=== PATIENT | male | born 1940 | race Caucasian/White ===

== ENCOUNTER 2016-08-11 21:03 | Observation (INO) | payer BC, MEDICARE ==
[2016-08-11] MEDS ORDERED: HYDROmorphone 2 MG/ML SDV IVPUSH ONE (21:23)
[2016-08-11] MEDS ORDERED: Iopamidol 755 Mg/ML 100 ML Bottle IV SCH (22:00)
--- NOTE | 2016-08-11 23:47 | EDM.PDOC ---
[id number]: ABD PAIN Time Seen by Provider: 08/11/16 21:23 Source of Information: Reports: Patient, Family History Limitations: Reports: Physical Impairment - History of Present Illness INITIAL COMMENTS - FREE TEXT/NARRATIVE: 75 y.o.w.m came with his to the ed due to LLQ abd. pain. Pt has H/O diverticulitis./osis nO TRAUMA, lAST bm TODAY, SOFT, Pt has a h/o C Diff. No Nausea of vomiting. Poor po intake. Pt is a poor historian, HPI was given by his . Onset: Gradual, Unknown/Unsure Onset Date: 08/11/16 Onset Time: 08:00 Duration: Hour(s):, Getting Worse Location: Reports: Abdomen (LLQ ), Generalized Quality: Reports: Ache, Burning, Pressure Severity: Moderate Improves with: Reports: Movement Worsens with: Reports: Movement Associated Symptoms: Reports: Loss of Appetite, Weakness Middle Abdominal Pain Score (Numeric/FACES): 10 denies pain when asked Pain Score (Numeric/FACES): 0 - Related Data Allergies Allergy/AdvReac Type Severity Reaction Status Date / Time Penicillins Allergy Diarrhea Verified 08/11/16 21:17 Home Meds: Home Meds Acetaminophen [Tylenol Extra Strength] 500 mg PO Q4H PRN 11/17/12 [History] Venlafaxine HCl [Venlafaxine ER] 300 mg PO DAILY 11/17/12 [History] Loperamide [Imodium] 2 mg PO ASDIRECTED PRN 10/09/13 [History] Tamsulosin [Flomax] 0.4 mg PO DAILY 10/09/13 [History] cycloSPORINE [Restasis] 1 drop EYEBOTH BID 10/09/13 [History] buPROPion HCl [Wellbutrin] 150 mg PO DAILY 10/10/13 [History] Losartan [Cozaar] 100 mg PO DAILY 08/11/16 [History] Melatonin/Pyridoxine HCl (B6) [Melatonin 3 mg Tablet] 6 mg PO BEDTIME 08/11/16 [ History] Ranitidine [Zantac] 1 tab PO BID 08/11/16 [History] Cholecalciferol (Vitamin D3) [Vitamin D3] 1,000 unit PO DAILY 08/12/16 [History] Leuprolide Acetate [Lupron Depot] 45 mg IM Q6M 08/12/16 [History] Past Medical History Oncologic (Cancer) History: Reports: Prostate - Past Surgical History GI Surgical History: Reports: Other (See Below) Other GI Surgeries/Procedures: Patient unsure of history Social & Family History - Tobacco Use Smoking Status *Q: Former Smoker Used Tobacco, but Quit: No - Caffeine Use Caffeine Use: Reports: Coffee - Alcohol Use Days Per Week of Alcohol Use: 0 - Recreational Drug Use Recreational Drug Use: No - Living Situation & Occupation Living situation: Reports: Occupation: Employed ED ROS GENERAL - Review of Systems Review Of Systems: Unable To Obtain ED EXAM, GI/ABD - Physical Exam Exam: See Below Exam Limited By: Physical Impairment General Appearance: Alert, WD/WN, Moderate Distress, Obese Eyes: Bilateral: Normal Appearance Ears: Normal External Exam Nose: Normal Inspection, Normal Mucosa Throat/Mouth: Normal Inspection, Normal Lips Head: Atraumatic, Normocephalic Neck: Normal Inspection, Supple, Non-Tender Respiratory/Chest: No Respiratory Distress, Lungs Clear, Normal Breath Sounds ( poor insp effort) Cardiovascular: Normal Peripheral Pulses, Regular Rate, Rhythm, No Edema GI/Abdominal: Hyperactive Bowel Sounds (Male) Exam: Deferred Rectal (Males) Exam: Deferred Back Exam: Normal Inspection, Full Range of Motion Extremities: Normal Inspection, Normal Range of Motion, Non-Tender, No Pedal Edema Neurological: Alert, Oriented, CN II-XII Intact, Normal Cognition Psychiatric: Normal Affect, Normal Mood Skin Exam: Warm, Dry, Intact, Normal Color, No Rash Lymphatic: No Adenopathy Course - Vital Signs Text/Narrative:: 75 y.o.w.m came with his to the ed due to LLQ abd. pain. Pt has H/O diverticulitis./osis nO TRAUMA, LAST Bm: TODAY, SOFT brown, no blood, Pt has a h /o C Diff. No Nausea or vomiting. Poor po intake. Pt is a poor historian, HPI was given by his . PE: obese, abd. pain LLQ of abdomen, hyperactyive BS Imaging: CT Abd. possible early bowel obstruction, diverticulosis Impression: possible early bowel obstruction, diverticulosis Tx: Dilaudid for severe pain. Stoo; was sent for c diff Reexam: Improved Plan: admit for obs. Consultation with Dr. Castro in am. Last Recorded V/S: Last Vital Signs Temp 36.5 C 08/12/16 15:15 Pulse 74 08/12/16 15:15 Resp 18 08/12/16 15:15 BP 137/69 08/12/16 15:15 Pulse Ox 95 08/12/16 15:15 - Orders/Labs/Meds Labs: Laboratory Tests 08/11/16 08/11/16 Range/Units 21:30 21:30 WBC 6.9 (4.5-12.0) X10-3/uL RBC 3.88 L (4.30-5.75) x10(6)uL Hgb 12.4 (11.5-15.5) g/dL Hct 36.3 (30.0-51.3) % MCV 93.5 (80-96) fL MCH 32.0 (27.7-33.6) pg MCHC 34.2 (32.2-35.4) g/dL RDW 12.7 (11.5-15.5) % Plt Count 236 (125-369) X10(3)uL MPV 8.5 (7.4-10.4) fL Neut % (Auto) 75.7 (46-82) % Lymph % (Auto) 12.2 L (13-37) % [place] % (Auto) 8.9 (4-12) % Eos % (Auto) 3 (1.0-5.0) % Baso % (Auto) 1 (0-2) % Neut # (Auto) 5.3 (1.6-8.3) # Lymph # (Auto) 0.8 (0.6-5.0) # [place] # (Auto) 0.6 (0.0-1.3) # Eos # (Auto) 0.2 (0.0-0.8) # Baso # (Auto) 0.0 (0.0-0.2) # Sodium 132 L (135-145) mmol/L Potassium 3.8 (3.5-5.3) mmol/L Chloride 99 L D (100-110) mmol/L Carbon Dioxide 24 (23-29) mmol/L BUN 27 H (8-23) mg/dL Creatinine 1.2 (0.6-1.3) mg/dL Est Cr Clr Drug Dosing 49.47 mL/min Estimated GFR (MDRD) 59 L (>60) BUN/Creatinine Ratio 22.5 H (9-20) Glucose 123 H (80-116) mg/dL Calcium 9.3 (8.6-10.2) mg/dL Total Bilirubin 0.6 (0.1-1.3) mg/dL Direct Bilirubin 0.1 (0.1-0.2) mg/dL AST 37 H (5-27) IU/L ALT 30 H (14-26) IU/L Alkaline Phosphatase 61 (56-112) IU/L Total Protein 7.3 (6.0-8.0) g/dL Albumin 4.1 (3.2-4.6) g/dL Amylase 32 (28-100) U/L Meds: Medications Discontinued Medications Generic Name Dose Route Start Last Admin Trade Name Freq PRN Reason Stop Dose Admin Hydromorphone HCl 1 mg 08/11/16 21:23 08/11/16 21:33 Dilaudid IVPUSH 08/11/16 21:24 1 mg ONETIME ONE Administration Hydromorphone HCl 0.5 mg 08/11/16 23:48 Dilaudid IVPUSH Q2H PRN Pain (severe 7-10) Iopamidol 100 ml 08/11/16 22:00 08/11/16 22:00 Isovue-370 (76%) IV 95 ml . DIRECTED NESTOR Administration Ondansetron HCl 4 mg 08/11/16 23:48 Zofran IV Q4H PRN Nausea/Vomiting Sodium Chloride 10 ml 08/11/16 23:48 Saline Flush FLUSH ASDIRECTED PRN Keep Vein Open Departure - Departure Time of Disposition: 02:00 Disposition: Admitted As Inpatient 68 Condition: fair Clinical Impression: Abdominal pain Qualifiers: Abdominal location: left lower quadrant Qualified Code(s): R10.32 - Left lower quadrant pain - Discharge Information
[2016-08-11] MEDS ORDERED: Ondansetron 4 MG/2 ML SDV IV PRN (23:48)
[2016-08-11] MEDS ORDERED: Sodium Chloride 0.9% 10 ML Syringe FLUSH PRN (23:48)
[2016-08-11] MEDS ORDERED: HYDROmorphone 2 MG/ML SDV IVPUSH PRN (23:48)
[2016-08-12] MEDS ORDERED: 50% Dextrose in Water 50 ML Syringe IVPUSH ONE (02:02)
[2016-08-12] MEDS ORDERED: Dextrose 5%-0.9% NaCl 1,000 ML IV SCH (02:15)
--- NOTE | 2016-08-12 10:03 | PCM.SURGPN ---
- General Info Date of Service: 08/12/16 POD#: 0 Functional Status: Reports: pain controlled, other (diarrhea ) - Review of Systems Gastrointestinal: Reports: No symptoms - Patient Data Vitals - most recent: Last Vital Signs Temp 36.3 C 08/12/16 04:00 Pulse 63 08/12/16 04:00 Resp 18 08/12/16 04:00 BP 138/76 08/12/16 04:00 Pulse Ox 98 08/12/16 04:00 Weight - most recent: 111.402 kg Med Orders - Current: Current Medications Hydromorphone HCl (Dilaudid) 0.5 mg IVPUSH Q2H PRN PRN Reason: Pain (severe 7-10) Iopamidol (Isovue-370 (76%)) 100 ml IV . DIRECTED NESTOR Last Admin: 08/11/16 22:00 Dose: 95 ml Ondansetron HCl (Zofran) 4 mg IV Q4H PRN PRN Reason: Nausea/Vomiting Sodium Chloride (Saline Flush) 10 ml FLUSH ASDIRECTED PRN PRN Reason: Keep Vein Open Discontinued Medications Hydromorphone HCl (Dilaudid) 1 mg IVPUSH ONETIME ONE Stop: 08/11/16 21:24 Last Admin: 08/11/16 21:33 Dose: 1 mg - Exam General: alert, oriented, cooperative, no acute distress Lungs: Clear to auscultation, Normal respiratory effort Cardiovascular: Regular Rate, Regular Rhythm Abdomen: bowel sounds present, soft, no tenderness, no distension - Problem List & Annotations (1) Diarrhea SNOMED Code(s): 37346661 Code(s): R19.7 - DIARRHEA, UNSPECIFIED Status: Acute Current Visit: Yes Qualifiers: Diarrhea type: presumed infectious Qualified Code(s): A09 - Infectious gastroenteritis and colitis, unspecified - Problem List Review Problem List Initiated/Reviewed/Updated: Yes - My Orders Last 24 Hours: Active Orders 24 hr Category Date Time Status Regular Diet [DIET] Diet 08/12/16 Lunch Ordered CDIFF TOXIN A+B GROUP [OP] Routine Lab 08/12/16 01:07 Received Medication Orders Hydromorphone HCl (Dilaudid) 0.5 mg IVPUSH Q2H PRN PRN Reason: Pain (severe 7-10) Iopamidol (Isovue-370 (76%)) 100 ml IV . DIRECTED NESTOR Last Admin: 08/11/16 22:00 Dose: 95 ml Ondansetron HCl (Zofran) 4 mg IV Q4H PRN PRN Reason: Nausea/Vomiting Sodium Chloride (Saline Flush) 10 ml FLUSH ASDIRECTED PRN PRN Reason: Keep Vein Open - Assessment Assessment (Free Text/Narrative):: does not have any evidence of obstruction. with his hx of c diff colitis this is a concern. - Plan Plan (Free Text/Narrative):: will feed await c diff results.
--- NOTE | 2016-08-12 15:42 | PCM.SN ---
- Free Text/Narrative Note: C diff negative. will allow to go home follow up with pcp next week.
[2016-08-12 16:23] VITALS: BP 137/69
== END 2016-08-12 16:55 | disposition home or self-care (01) ==
LOC: FB.ED 21:03 → FB.MS 23:49
PROVIDERS: ADMIT Emergency Medicine; ATTEND Surgery
DX: A09 Infectious gastroenteritis and colitis, unspecified (principal); Z87.19 Personal history of other diseases of the digestive system; Z85.46 Personal history of malignant neoplasm of prostate; Z87.891 Personal history of nicotine dependence; Z88.0 Allergy status to penicillin; Z79.899 Other long term (current) drug therapy
CPT/HCPCS: 36415; 74177; 80048; 80076; 82150; 85025; 87324; 96374; 99285; G0378; J1170; Q9967; 96372

== ENCOUNTER 2020-03-21 12:48 | Emergency (ER) | payer BC, MEDICARE ==
[2020-03-21] MEDS ORDERED: Aspirin 81 MG Tab.Chew PO ONE (13:13)
--- NOTE | 2020-03-21 13:27 | EDM.PDOC ---
ED HPI GENERAL MEDICAL PROBLEM - General Stated Complaint: SEVERE CHEST PAIN Time Seen by Provider: 03/21/20 13:27 Source of Information: Reports: Patient History Limitations: Reports: No Limitations - History of Present Illness INITIAL COMMENTS - FREE TEXT/NARRATIVE: 79 yo gentleman who presented to the ER with retrosternal chest that on and off for the past 1 month. Was seen and evaluated by PCP -- EKG, Labs. Current pain started today at Home. He describes it as retrosternal chest pain which he rates as 5/10 with no obvious aggravating or reliving factors.No SOB, Cough. Presented to the ER for further evaluation Onset: Other (Has been on and off for 1 month) Onset Date: 03/21/20 Duration: Week(s): (4) Location: Reports: Chest Quality: Reports: Sharp Improves with: Reports: None Worsens with: Reports: None Associated Symptoms: Reports: No Other Symptoms Treatments [employer]: Reports: Nitroglycerin (with mild relief) Chest Pain Score (Numeric/FACES): 20 - Related Data Allergies Allergy/AdvReac Type Severity Reaction Status Date / Time lisinopril Allergy Cough Verified 03/21/20 13:06 Penicillins Allergy Diarrhea Verified 03/21/20 13:06 Home Meds: Home Meds Venlafaxine HCl [Venlafaxine ER] 300 mg PO DAILY 11/17/12 [History] Loperamide [Imodium] 2 mg PO ASDIRECTED PRN 10/09/13 [History] cycloSPORINE [Restasis] 1 drop EYEBOTH BID 10/09/13 [History] buPROPion HCl [Wellbutrin] 75 mg PO BID 10/10/13 [History] Hydrochlorothiazide/Losartan [Hyzaar 100-12.5 MG] 1 tab PO DAILY 03/21/18 [History] Omeprazole 20 mg PO BIDAC 03/22/18 [History] Gabapentin [Neurontin] 600 mg PO BEDTIME 03/21/20 [History] Nitroglycerin [Nitrostat] 0.4 mg SL ASDIRECTED 03/21/20 [History] Vortioxetine Hydrobromide [Trintellix] 20 mg PO DAILY 03/21/20 [History] Past Medical History HEENT History: Reports: Cataract, Hard of Hearing, Impaired Vision Other HEENT History: CONDUCTIVE AND SENSORINEURAL HEARING LOSS Cardiovascular History: Reports: Hypertension Other Cardiovascular History: CHEST PAIN Respiratory History: Reports: None Gastrointestinal History: Reports: GERD Other Gastrointestinal History: GEN ABDO PAIN, ULCER Genitourinary History: Reports: Prostate Disorder, Urinary Incontinence, UTI, Recurrent Other Genitourinary History: BLADDER TUMOR, DYSURIA, HEMATURIA, INCOMPLETE BLADDER EMPTYING, OVERACTIVE BLADDER, RADIATION CYSTITIS Other Musculoskeletal History: PERIPERAL NEUROPATHY, NUMBNESS AND TINGLING IN HANDS, PAIN IN JOINT,PELVIC AND THIGH Neurological History: Reports: Neuropathy, Peripheral Psychiatric History: Reports: Anxiety, Depression Endocrine/Metabolic History: Reports: Obesity/BMI 30+ Hematologic History: Reports: Anemia Immunologic History: Reports: None Oncologic (Cancer) History: Reports: Bladder, Prostate Other Oncologic History: SKIN Other Dermatologic History: BASAL CELL CARCINOMA - Past Surgical History Male Surgical History: Social & Family History - Caffeine Use Caffeine Use: Reports: Coffee - Living Situation & Occupation Living situation: Reports: Occupation: Employed ED ROS GENERAL - Review of Systems Review Of Systems: See Below Constitutional: Reports: No Symptoms HEENT: Reports: No Symptoms Respiratory: Reports: No Symptoms Cardiovascular: Reports: Chest Pain Endocrine: Reports: No Symptoms GI/Abdominal: Reports: No Symptoms : Reports: No Symptoms Musculoskeletal: Reports: No Symptoms Skin: Reports: No Symptoms Neurological: Reports: No Symptoms Psychiatric: Reports: No Symptoms Hematologic/Lymphatic: Reports: No Symptoms Immunologic: Reports: No Symptoms ED EXAM, GENERAL - Physical Exam Exam: See Below Exam Limited By: No Limitations General Appearance: Alert, WD/WN, No Apparent Distress Eye Exam: Bilateral Eye: EOMI, PERRL Ear Exam: Bilateral Ear: Auricle Normal, Canal Normal, TM normal Nose: Normal Inspection, Normal Mucosa, No Blood Throat/Mouth: Normal Inspection, Normal Lips, Normal Teeth, Normal Gums, Normal Oropharynx Head: Atraumatic, Normocephalic Neck: Normal Inspection, Supple, Non-Tender Respiratory/Chest: No Respiratory Distress, Lungs Clear, Normal Breath Sounds, No Accessory Muscle Use, Chest Non-Tender Cardiovascular: Normal Peripheral Pulses, Regular Rate, Rhythm, No Edema, No Gallop, No Murmur GI/Abdominal: Normal Bowel Sounds, Soft, Non-Tender, No Organomegaly, No Distention, No Abnormal Bruit Back Exam: Normal Inspection, Full Range of Motion Extremities: Normal Inspection, Normal Range of Motion, Non-Tender, No Pedal Edema, Normal Capillary Refill Neurological: Alert, Oriented, CN II-XII Intact, Normal Cognition, Normal Reflexes, No Motor/Sensory Deficits Psychiatric: Normal Affect, Normal Mood Skin Exam: Warm, Dry, Intact, Normal Color Lymphatic: No Adenopathy Course - Vital Signs Last Recorded V/S: Last Vital Signs Temp 36.3 C 03/21/20 13:00 Pulse 80 03/21/20 13:00 Resp 18 03/21/20 13:00 BP 164/93 H 03/21/20 13:00 Pulse Ox 97 03/21/20 13:00 - Orders/Labs/Meds Orders: Active Orders 24 hr Category Date Time Status EKG Documentation Completion [RC] ASDIRECTED Care 03/21/20 13:00 Active CXR [Chest 2V] [CR] Stat Exams 03/21/20 13:13 Taken Heparin Sodium/0.45% NaCl [Heparin 25,000 Units in 1/2 Med 03/21/20 15:00 Active NS 500 ML] 500 ml IV ASDIRECTED Nitroglycerin/D5W [Nitroglycerin 25 MG/D5W 250 ML] Med 03/21/20 14:30 Active 25 mg in 250 ml IV TITRATE EKG 12 Lead [EK] Routine Ther 03/21/20 13:00 Ordered Medication Orders Nitroglycerin/Dextrose (Nitroglycerin 25 Mg/D5w 250 Ml) 25 mg in 250 mls @ 6 mls/hr IV TITRATE NESTOR; Protocol Last Admin: 03/21/20 14:35 Dose: 10 mcg/min, 6 mls/hr Documented by: KRISTYN Heparin Sodium/Sodium Chloride (Heparin 25,000 Units In 1/2 Ns 500 Ml) 500 mls @ 20 mls/hr IV ASDIRECTED NESTOR Labs: Laboratory Tests 03/21/20 03/21/20 03/21/20 Range/Units 13:30 13:30 13:30 WBC 5.0 (3.2-10.1) x10-3/uL RBC 3.68 L (3.90-5.90) x10(6)uL Hgb 11.8 L (12.9-17.7) g/dL Hct 36.4 L (38.3-50.1) % MCV 98.7 (80.8-98.7) fL MCH 32.0 (27.0-33.3) pg MCHC 32.4 (28.7-35.3) g/dL RDW 14.5 (12.4-15.0) % Plt Count 227 (117-477) x10(3)uL MPV 8.5 (6.7-11.0) fL Neut % (Auto) 75.5 H (40.3-71.8) % Lymph % (Auto) 12.5 L (15.8-45.3) % [place] % (Auto) 7.8 (5.5-15.2) % Eos % (Auto) 3.9 (0.1-6.8) % Baso % (Auto) 0.3 (0.3-3.8) % Neut # (Auto) 3.8 (1.7-6.9) x10-3/uL Lymph # (Auto) 0.6 (0.5-4.5) x10-3/uL [place] # (Auto) 0.4 (0.0-1.2) x10-3/uL Eos # (Auto) 0.2 (0.0-0.6) x10-3/uL Baso # (Auto) 0.0 (0.0-0.3) x10-3/uL Sodium 142 (135-145) mmol/L Potassium 4.3 (3.5-5.3) mmol/L Chloride 103 (100-110) mmol/L Carbon Dioxide 28 (21-32) mmol/L BUN 25 H (7-18) mg/dL Creatinine 1.5 H (0.70-1.30) mg/dL Est Cr Clr Drug Dosing 41.24 mL/min Estimated GFR (MDRD) 45 L (>60) BUN/Creatinine Ratio 16.7 (9-20) Glucose 128 H (80-116) mg/dL Calcium 9.1 (8.6-10.2) mg/dL Magnesium (1.8-2.5) mg/dL Total Bilirubin 0.5 (0.1-1.3) mg/dL AST 30 H (5-25) IU/L ALT 39 H (12-36) U/L Alkaline Phosphatase 52 L (56-112) IU/L Troponin I 90.6 H* (4.0-60.3) pg/mL NT-Pro-B Natriuret Pep (<=450) pg/mL Total Protein 6.8 (6.0-8.0) g/dL Albumin 3.7 (3.2-4.6) g/dL Globulin 3.1 g/dL Albumin/Globulin Ratio 1.2 03/21/20 03/21/20 Range/Units 13:30 13:30 WBC (3.2-10.1) x10-3/uL RBC (3.90-5.90) x10(6)uL Hgb (12.9-17.7) g/dL Hct (38.3-50.1) % MCV (80.8-98.7) fL MCH (27.0-33.3) pg MCHC (28.7-35.3) g/dL RDW (12.4-15.0) % Plt Count (117-477) x10(3)uL MPV (6.7-11.0) fL Neut % (Auto) (40.3-71.8) % Lymph % (Auto) (15.8-45.3) % [place] % (Auto) (5.5-15.2) % Eos % (Auto) (0.1-6.8) % Baso % (Auto) (0.3-3.8) % Neut # (Auto) (1.7-6.9) x10-3/uL Lymph # (Auto) (0.5-4.5) x10-3/uL [place] # (Auto) (0.0-1.2) x10-3/uL Eos # (Auto) (0.0-0.6) x10-3/uL Baso # (Auto) (0.0-0.3) x10-3/uL Sodium (135-145) mmol/L Potassium (3.5-5.3) mmol/L Chloride (100-110) mmol/L Carbon Dioxide (21-32) mmol/L BUN (7-18) mg/dL Creatinine (0.70-1.30) mg/dL Est Cr Clr Drug Dosing mL/min Estimated GFR (MDRD) (>60) BUN/Creatinine Ratio (9-20) Glucose (80-116) mg/dL Calcium (8.6-10.2) mg/dL Magnesium 2.1 (1.8-2.5) mg/dL Total Bilirubin (0.1-1.3) mg/dL AST (5-25) IU/L ALT (12-36) U/L Alkaline Phosphatase (56-112) IU/L Troponin I (4.0-60.3) pg/mL NT-Pro-B Natriuret Pep 143 (<=450) pg/mL Total Protein (6.0-8.0) g/dL Albumin (3.2-4.6) g/dL Globulin g/dL Albumin/Globulin Ratio Meds: Medications Generic Name Dose Route Start Last Admin Trade Name Freq PRN Reason Stop Dose Admin Nitroglycerin/Dextrose 25 mg in 250 mls @ 6 mls/hr 03/21/20 14:30 03/21/20 14:35 Nitroglycerin 25 Mg/D5w 250 Ml IV 10 mcg/min TITRATE NESTOR 6 mls/hr Administration Protocol 10 MCG/MIN Heparin Sodium/Sodium Chloride 500 mls @ 20 mls/hr 03/21/20 15:00 Heparin 25,000 Units In / Ns 500 Ml IV ASDIRECTED NESTOR Discontinued Medications Generic Name Dose Route Start Last Admin Trade Name Freq PRN Reason Stop Dose Admin Aspirin 324 mg 03/21/20 13:13 03/21/20 13:20 Aspirin PO 03/21/20 13:14 324 mg ONETIME ONE Administration Heparin Sodium (Porcine) 5,000 units 03/21/20 15:09 Heparin Sodium IVPUSH 03/21/20 15:10 ONETIME ONE Nitroglycerin/Dextrose Confirm 03/21/20 14:31 03/21/20 14:43 Nitroglycerin 25 Mg/D5w 250 Ml Administered 03/21/20 14:32 Not Given Dose 25 mg in 250 mls @ as directed .ROUTE .STK-MED ONE Morphine Sulfate 2 mg 03/21/20 14:19 03/21/20 14:35 Morphine IVPUSH 03/21/20 14:20 2 mg ONETIME ONE Administration Nitroglycerin 0.4 mg 03/21/20 14:20 Nitrostat SL 03/21/20 14:21 ONETIME ONE - Re-Assessments/Exams Free Text/Narrative Re-Assessment/Exam: 03/21/20 15:33 Clinical picture consistent with NSTEMI Nitroglycerin gtt and Heparin gtt started Case D/w [facility] -- Dr. Read -- who graciously accepted patient Transported in stable condition to [facility]. Departure - Departure Time of Disposition: 15:30 Disposition: DC/Tfer to Other 70 Reason for Transfer *Q: Primary PCI Indicated (NSTEMI) Condition: Good Clinical Impression: NSTEMI (non-ST elevated myocardial infarction) Referrals: Jeremi Zhu MD [Primary Care Provider] - Additional Instructions: Transferred to [facility] -- accepted by Dr. Read Sepsis Event Note (ED) - Focused Exam Vital Signs: Vital Signs Temp Pulse Resp BP Pulse Ox 03/21/20 13:00 36.3 C 80 18 164/93 H 97 - Problem List & Annotations (1) NSTEMI (non-ST elevated myocardial infarction) SNOMED Code(s): 57882652 Code(s): I21.4 - NON-ST ELEVATION (NSTEMI) MYOCARDIAL INFARCTION Status: Acute Current Visit: Yes - Problem List Review Problem List Initiated/Reviewed/Updated: Yes - My Orders Last 24 Hours: My Active Orders 03/21/20 13:00 EKG Documentation Completion [RC] ASDIRECTED EKG 12 Lead [EK] Routine 03/21/20 13:13 CXR [Chest 2V] [CR] Stat 03/21/20 14:30 Nitroglycerin/D5W [Nitroglycerin 25 MG/D5W 250 ML] 25 mg in 250 ml IV TITRATE 03/21/20 15:00 Heparin Sodium/0.45% NaCl [Heparin 25,000 Units in 1/2 NS 500 ML] 500 ml IV ASDIRECTED - Assessment/Plan Last 24 Hours: My Active Orders 03/21/20 13:00 EKG Documentation Completion [RC] ASDIRECTED EKG 12 Lead [EK] Routine 03/21/20 13:13 CXR [Chest 2V] [CR] Stat 03/21/20 14:30 Nitroglycerin/D5W [Nitroglycerin 25 MG/D5W 250 ML] 25 mg in 250 ml IV TITRATE 03/21/20 15:00 Heparin Sodium/0.45% NaCl [Heparin 25,000 Units in 1/2 NS 500 ML] 500 ml IV ASDIRECTED
[2020-03-21 14:02] VITALS: BP 164/93; PULSE 80
[2020-03-21] MEDS ORDERED: Morphine 2 MG/ML SYRINGE IVPUSH ONE (14:19)
[2020-03-21] MEDS ORDERED: Nitroglycerin 0.4 MG Tab.SL SL ONE (14:20)
[2020-03-21] MEDS ORDERED: Nitroglycerin/D5W 25 MG/250 ML BOTTLE IV SCH (14:30)
[2020-03-21] MEDS ORDERED: Nitroglycerin/D5W 25 MG/250 ML BOTTLE ONE (14:31)
[2020-03-21] MEDS ORDERED: Heparin Sodium/0.45% NaCl 500 ML IV SCH (15:00)
[2020-03-21] MEDS ORDERED: Heparin Sodium 5,000 Units/ML Vial IVPUSH ONE (15:09)
--- OUTSIDE RECORDS SUMMARY | 2020-03-25 08:47 | XMSREPORT ---
:[address] [facility] and [facility] s Address [facility] [address] [place] [address] Care Team Providers Name Role Phone Rupert Zhu MD Primary Care Provider Jeffrey Ross MD Attributed Provider Reason for Referral Transitions of Care (Routine) Status Reason Specialty Diagnoses / Referred By Referred To Procedures Contact Contact New Request Patient Diagnoses Stented coronary artery Mack Allen, Reuben Wells MD MD [address] [place] [id number] Phone: Fax: Reason for Visit Reason Comments Auth/Cert Status Reason Specialty Diagnoses / Procedures Referred By C ontact Referred To Contact Encounter Details Date Type Department Care Team Description 03/21/2020 - Hospital Encounter Provider, [facility] Procedure NSTEMI (non-ST 03/23/2020 [facility] Danya Cano MD [address] [place] [address] [phone] elevated myocardial [address] Boston Walton MD [address] [place] [address] [phone] infarction) (HCC) [place] [address] Chuyita Lord MD [address] [place] [address] [phone] Leticia Read MD [address] [place] [address] [phone] Allergies Active Allergy Reactions Severity Noted Date Comments Lisinopril Cough 10/07/2014 Penicillin Diarrhea 04/26/2012 documented as of this encounter (statuses as of 03/23/2020) Medications Medication Sig Dispensed Refills Start Date End Date Status Glucose Blood (FP 0 11/12/2012 A ctive BLOOD GLUCOSE TEST STRIPS ) loperamide (IMODIUM) 2 Take 2 mg by 0 Active mg capsule mouth as needed. Take 2 caps after the first loose stool, then 1 cap after each loose stool, but no more than 8 caps per day. blood glucose test USE FOR TESTING 100 each 1 08/30/2016 Active strip (FREESTYLE ONCE DAILY LITE)Indications: DIRECTED Hypoglycemia terbinafine (LAMISIL Bid rash on 60 Tube 4 11/16/2018 Active AT) 1 % tummy and groin creamIndications: Rash region omeprazole (PRILOSEC) Take 1 capsule 90 capsule 3 01/25/2019 Active 20 mg capsule (20 mg) by mouth 2 times a day before meals buPROPion (WELLBUTRIN) Take 75 mg by 0 12/09/2019 Active 75 mg tablet mouth 2 times a day acetaminophen Take 1,000 mg by 0 Active (TYLENOL) 500 mg mouth 2 times a tablet day gabapentin (NEURONTIN) TAKE 2 CAPSULES 180 capsule 0 0 Active 300 mg BY MOUTH EVERY capsuleIndications: NIGHT AT BEDTIME Idiopathic peripheral neuropathy Additional Information Patient taking differently: 600 mg Oral Bedtime, TAKE 2 CAPSULES BY MOUTH EVERY NIGHT AT BEDTIME, Reported on 03/21/2020 6:35 PM Misc Natural Products Take 20 mg by 0 Active (LUTEIN) capsule mouth melatonin 10 mg Take 10 mg by 0 Active capsule mouth every night at bedtime nitroglycerin Dissolve 1 20 tablet 0 02/25/20 03/01/20 Activ e (NITROSTAT) 0.4 mg tablet (0.4 mg) 20 21 sublingual under the tongue tabletIndications: Every 5 minutes Chest pain, as needed for unspecified type chest pain May repeat every 5 minutes for a total of 3 doses. vortioxetine Take 20 mg by 0 Act carolee (TRINTELLIX) 20 mg mouth 1 time per tablet day cycloSPORINE 1 drop 2 times a 0 Active (RESTASIS) 0.05 % day as needed ophthalmic emulsion for other (Specify) (dry eyes) clopidogrel (PLAVIX) Take 1 tablet 90 tablet 3 03/23/19 Active 75 mg (75 mg) by mouth 21 tabletIndications: 1 time per day Stented coronary artery losartan 25 mg Take 1 tablet 30 tablet 0 03/23/19 04/22/19 A ctive tabletIndications: (25 mg) by mouth NSTEMI (non-ST 1 time per day elevated myocardial infarction) (HCC), Stented coronary artery, Essential hypertension carVEDilol (COREG) Take 0.5 tablets 30 tablet 0 03/23/1906/06 Active 3.125 mg (1.5625 mg) by tabletIndications: mouth 2 times a NSTEMI (non-ST day with meals elevated myocardial infarction) (HCC), Stented coronary artery, Essential hypertension aspirin 81 mg enteric Take 1 tablet 30 tablet 0 03/23/19 Active coated (81 mg) by mouth 21 tabletIndications: 1 time per day Stented coronary artery RESTASIS 0.05 % Place into both 0 03/12/20 03/21/19 Discontinued (Data ophthalmic emulsion eyes Every 03 01 21 entry error) hours TRINTELLIX 20 MG 1 time per day 0 04/23/19 03/21/19 Discontinued (Data tablet entry erro r) losartan-hydroCHLOROt TAKE 1 TABLET BY 90 tablet 3 12/31/19 0 03/23/19 Discontinued (Stop hiazide (HYZAAR) MOUTH ONCE DAILY Taking at Discharge) 100-12.5 mg tabletIndications: Essential hypertension valACYclovir Take 1 tablet 21 tablet 0 03/05/20 03/23/19 Dis continued (Stop (VALTREX) 1000 mg (1,000 mg) by Taking at Discharge) tabletIndications: mouth 3 times a Herpes zoster without day complication documented as of this encounter (statuses as of 03/23/2020) Active Problems Problem Noted Date NSTEMI (non-ST elevated myocardial infarction) 021 Severe obstructive sleep apnea 04/23/2018 Overview: PSG 11/29/17 AHI 52.6 O2 78% CPAP 13CM Urinary incontinence, urge 03/23/2015 Radiation cystitis 02/09/2015 Mixed conductive and sensorineural hearing loss, bilat eral 12/10/2014 Enlarged prostate with urinary obstruction 11/15/2012 Hereditary and idiopathic peripheral neuropathy 2011 Anemia 11/24/2010 Anxiety state 04/09/2008 Essential hypertension Recurrent major depressive disorder, in remission documented as of this encounter (statuses as of 03/23/2020) Resolved Problems Problem Noted Date Resolved Date STIVEN (acute kidney injury) 12/13/2018 03/21/2020 Gastritis determined by biopsy 03/26/2018 Lower urinary tract symptoms (LUTS) 04/17/201704/2020 OAB (overactive bladder) 03/23/2015 03/23/2020 Gross hematuria 02/09/2015 03/21/2020 Bladder tumor 02/09/2015 03/23/2020 Infection due to yeast 02/09/2015 03/21/2020 Acute lower UTI (urinary tract infection) 12/25/2012 03/21/2020 Incomplete bladder emptying 12/25/2012 03/21/2020 Malignant neoplasm of prostate 12/04/2012 Cancer Staging: Clinical: Stage Unknown (T3a, NX, M0) - Signed by Keshawn Villalta MD on 12/25/2012 Pathologic: Stage Unknown (TX, NX, cM0) - Signed by Keshawn Villalta MD on 12/25/2012 Elevated PSA 11/15/2012 03/23/2015 Prostate nodule with urinary obstruction 11/15/2012 03/21/2020 Carpal tunnel syndrome 10/25/2012 03/23/2020 Numbness and tingling in hands 10/04/2012 1 Hypoglycemia 11/24/2010 03/21/2020 Pain in joint, pelvic region and thigh 02/05/2010 0 03/23/2020 Chest pain 11/03/2009 03/21/2020 Dysuria 09/29/2008 05/14/2018 Abdominal pain, generalized 04/09/2008 03/21/2020 documented as of this encounter (statuses as of 03/23/2020) Immunizations Name Administration Dates Next Due Pneumococcal Conj PCV13 05/02/2016 Pneumococcal Polysaccharide PPSV23 11/17/2012 Pneumococcal Vaccine, Conjugate (child) 11/17/2012 TDAP 07/27/2019 Td(adult)preservative free 09/25/2009 documented as of this encounter Social History Tobacco Use Types Packs/Day Years Used Date Former Smoker 1 33 Quit: 11/15/18 85 Smokeless Tobacco: Never Used Alcohol Use Drinks/Week oz/Week Comments Yes 1 Rare/Occasional 0.8 rarely maybe e very 2-3 months Social Isolation Answer Date Recorded In a typical week, how many times do you talk on Once a week 01/25/2019 the phone with family, friends, or neighbors? How often do you get together with friends or Once a week 01/25/2019 relatives? How often do you attend nondenominational or tenriism 1 to 4 times per year 01/25/2019 services? Do you belong to any clubs or organizations such No 01/25/2019 as nondenominational groups, unions, fraternal or athletic groups, or school groups? How often do you attend meetings of the clubs or Never 01/25/2019 organizations you belong to? Are you now , , , 01/25/2019 , never or living with a partner? Physical Activity Answer Date Recorded On average, how many days per week do you engage in moderate 0 days 01/25/2019 to strenuous exercise (like walking fast, running, jogging, dancing, swimming, biking, or other activities that cause a light or heavy sweat)? On average, how many minutes do you engage in exercise at No t asked this level? Stress Answer Date Recorded Do you feel stress - tense, restless, nervous, or Only a lit tle 01/25/2019 anxious, or unable to sleep at night because your mind is troubled all the time - these days? Financial Resource Strain Answer Date Recorded How hard is it for you to pay for the very basics like Not h latasha at all 01/25/2019 food, housing, medical care, and heating? Intimate Partner Violence Answer Date Recorded Within the last year, have you been afraid of your partner o r No 01/25/2019 ex-partner? Within the last year, have you been humiliated or emotionall y No 01/25/2019 abused in other ways by your partner or ex-partner? Within the last year, have you been kicked, hit, slapped, or No 01/25/2019 otherwise physically hurt by your partner or ex-partner? Within the last year, have you been raped or forced to have any No 01/25/2019 kind of sexual activity by your partner or ex-partner? Food Insecurity Answer Date Recorded Within the past 12 months, you worried that your food would Never true 01/25/2019 run out before you got money to buy more. Within the past 12 months, the food you bought just didn't N ever true 01/25/2019 last and you didn't have money to get more. Transportation Needs Answer Date Recorded In the past 12 months, has lack of transportation kept you f rom No 01/25/2019 medical appointments or from getting medications? In the past 12 months, has lack of transportation kept you f rom No 01/25/2019 meetings, work, or getting things needed for daily living? Sexually Active Control Partners Comments Yes Female Sex Assigned at Date Recorded Not on file documented as of this encounter Last Filed Vital Signs Vital Sign Reading Time Taken Comments Blood Pressure 91/60 03/23/2020 9:00 AM BARRATTE OPERATOR Pulse 57 03/23/2020 9:00 AM BARRATTE OPERATOR Temperature 36.2 C (97.2 F) 03/23/2020 8:00 AM BARRATTE OPERATOR Respiratory Rate 12 03/23/2020 9:00 AM BARRATTE OPERATOR Oxygen Saturation 93% 03/23/2020 9:00 AM BARRATTE OPERATOR Inhaled Oxygen Concentration - - Weight 113.5 kg (250 lb 3.6 oz) 03/22/2020 6:33 AM BARRATTE OPERATOR Height 175.3 cm (5' 9") 03/21/2020 5:00 PM BARRATTE OPERATOR Body Mass Index 36.95 03/21/2020 5:00 PM BARRATTE OPERATOR documented in this encounter Functional Status Functional Status Response Date of Assessment Is the person deaf or does he/she have serious difficulty No 08/01/2013 hearing? Is this person blind or does he/she have difficulty No 08/01/2013 seeing even when wearing glasses? Do you have difficulty with walking, balance, climbing No 09/19/2019 stairs, or had a fall in the last 3 months? Does the patient have difficulty dressing or bathing? No 02/11/2015 Because of a physical, mental, or emotional condition; No 02/11/2015 does this person have difficulty doing errands alone such as visiting a doctor's office or shopping? Cognitive Status Response Date of Assessment Because of a physical, mental, or emotional condition; No 02/11/2015 does this person have serious difficulty concentrating, remembering, or making decisions? documented as of this encounter Discharge Summaries Not on filedocumented in this encounter Discharge Instructions Fior-Chuyita Copeland MD - 03/23/2020You were admitted to the hospital because You had a blockage of an artery supplying your heart.Thsi b lockage was opened by the heart doctor and a stent placed in the artery. Discharge instructions: Diet: Return to heart healthy diet and low salt to prevent fluid buildup. Activity: You can return to activity as tolerated. Gradually progress activity levels Follow Up Appointments: - see your primary doctor within the week to follow up on changes in your medication and to ensure you continue to recover. Your primary doctor can follow up on your hemoglobin, blood pressure and howyou are doing on your medications. He can also help you get scheduled in the heart failure clinic. Discharge Medications: - Start taking aspirin 81 mg daily and plavix 75mg daily to thin your blood. - coreg 1.5625 mg twice a day and losartan 25 mg daily will help protect your heart and keep your blood pressure and heart rate controlled. The losartan is one medication that is in the hyzaar so willnot be new for you. We are stopping the other medicine in the hyzaar, HCTZ. - Stop taking hyzaar. - All other medications are same as before. Tests to do after discharge: Cardiac rehab referral has been placed Follow up in heart failure clinic Echo results 03/22/2020: Left Ventricle: Normal left ventricular size. Mildly increased left ventricular wall thickness. [id number] reduced left ventricular systolic function. The ejection fraction is visually estimated to be 40 %. The basal anteroseptal segment is hypokinetic. The mid anteroseptal, apical anterior, apical septal, apical inferior, apical lateral and apex wall segments are akinetic. Mitral Valve: Trivial mitral regurgitation. Right Ventricle: Normal right ventricular size. Unable to assess right ventricular function due to poor image quality. Tricuspid Valve: Trivial tricuspid regurgitation. documented in this encounter Medications at Time of Discharge Medication Sig Dispensed Refills Start Date End Date clopidogrel (PLAVIX) 75 Take 1 tablet (75 90 tablet 3 03/23 mg tabletIndications: mg) by mouth 1 time Stented coronary artery per day losartan 25 mg Take 1 tablet (25 30 tablet 0 03/23/202005/2020 tabletIndications: mg) by mouth 1 time NSTEMI (non-ST elevated per day myocardial infarction) (HCC), Stented coronary artery, Essential hypertension vortioxetine Take 20 mg by mouth 0 (TRINTELLIX) 20 mg 1 time per day tablet cycloSPORINE (RESTASIS) 1 drop 2 times a 0 0.05 % ophthalmic day as needed for emulsion other (Specify) (dry eyes) nitroglycerin Dissolve 1 tablet 20 tablet 0 02/25/202002/17 (NITROSTAT) 0.4 mg (0.4 mg) under the sublingual tongue Every 5 tabletIndications: Chest minutes as needed pain, unspecified type for chest pain May repeat every 5 minutes for a total of 3 doses. gabapentin (NEURONTIN) TAKE 2 CAPSULES BY 180 capsule 0 12/18 300 mg MOUTH EVERY NIGHT capsuleIndications: AT BEDTIME Idiopathic peripheral neuropathy buPROPion (WELLBUTRIN) Take 75 mg by mouth 0 11/19 75 mg tablet 2 times a day carVEDilol (COREG) 3.125 Take 0.5 tablets 30 tablet 0 03/2304/22/2020 mg tabletIndications: (1.5625 mg) by NSTEMI (non-ST elevated mouth 2 times a day myocardial infarction) with meals (HCC), Stented coronary artery, Essential hypertension aspirin 81 mg enteric Take 1 tablet (81 30 tablet 0 021 coated mg) by mouth 1 time tabletIndications: per day Stented coronary artery melatonin 10 mg capsule Take 10 mg by mouth 0 every night at bedtime Misc Natural Products Take 20 mg by mouth 0 (LUTEIN) capsule acetaminophen (TYLENOL) Take 1,000 mg by 0 500 mg tablet mouth 2 times a day omeprazole (PRILOSEC) 20 Take 1 capsule (20 90 capsule 3 10/2018 mg capsule mg) by mouth 2 times a day before meals terbinafine (LAMISIL AT) Bid rash on tummy 60 Tube 4 10/20 1 % creamIndications: and groin region Rash blood glucose test strip USE FOR TESTING 100 each 1 2016 (FREESTYLE ONCE DAILY LITE)Indications: DIRECTED Hypoglycemia loperamide (IMODIUM) 2 Take 2 mg by mouth 0 mg capsule as needed. Take 2 caps after the first loose stool, then 1 cap after each loose stool, but no more than 8 caps per day. Glucose Blood (FP BLOOD 0 11/12/2012 GLUCOSE TEST STRIPS ) documented as of this encounter Progress Notes Ricardo Cárdenas, ALANA-MUSHROOM GROWER - 03/22/2020 9:50 AM CST Cardiology Hospital Progress Note Assessment / Plan Active Problems: Essential hypertension Recurrent major depressive disorder, in remission ([facility]) Anxiety state Anemia Enlarged prostate with urinary obstruction Severe obstructive sleep apnea NSTEMI (non-ST elevated myocardial infarction) ([facility]) Resolved Problems: * No resolved hospital problems. * Plan: NSTEMI s/p LAD stent -continue telemetry until discharge, he did have some short runs of VT post procedure, he was asymptomatic -cardiac rehab strongly encouraged -continue aspirin 81 mg daily -continue plavix 75 mg daily -continue metoprolol tartrate 12.5 mg twice daily Systolic heart failure/EF 40% -recommend switching lopressor to coreg for heart failure management, then titrate Coreg per protocol. -recommend/agree with starting losartan 25 mg daily and will need to titrate per protocol -refer to heart failure program, follow up in 2-4 weeks. -cardiology will sign off. Thank you For this consult. HPI / History / ROS Connor Fitzgerald Sr. is a 79yr old male admitted on 03/21/2020. HPI He complains of substernal chest discomfort this morning, that resolved with activity. The pain is significantly improved since admission. He denies any complaints of left arm pain, neck pain, jaw pain, dizziness, lightheadedness, lower extremity edema and palpitations. He is extremely [place]. Physical / Results Current Vital Signs Temp: 97.6 F (36.4 C) BP: 105/74 Weight: 113.5 kg (250 lb 3.6 oz) SpO2: 93 % Resp: 22 Pulse: 61 Current BMI (>50 = increased risk): (!) 35.86 O2 Device: Room Air O2 Flow Rate (L/min): 2 l/min Pain Ratin Maximum Temperatures (last 24 hours) Temperature Maximum Max Temp 97.6 F (36.4 C) Physical Exam Constitutional: No distress. Neck: No JVD present. Cardiovascular: Normal rate, regular rhythm, S1 normal and S2 normal. Occasional extrasystoles are present. No murmur heard. Pulses: Radial pulses are 2+ on the right side and 2+ on the left side. Posterior tibial pulses are 2+ on the right side and 2+ on the left side. Pulmonary/Chest: Effort normal and breath sounds normal. Abdominal: Bowel sounds are normal. He exhibits distension. Musculoskeletal: General: No edema. Neurological: He is alert and oriented to person, place, and time. Skin: Skin is warm and dry. Clubbing of the fingernails ATTE OPERATOR Adali Ramirez MD - 03/22/2020 6:07 AM CST Inpatient Medicine Progress Note Patient Name: Connor Fitzgerald Sr. Admit Date: 03/21/2020 CSN: [id number] Summary: Connor Fitzgerald Sr. is a 79yr male that was admitted for an NSTEMI. Impression/Plan: #NSTEMI, Type I, s/p PCI on 03/21 - Elevated trop prior to admission, 19.388 at [facility] [place] - Cardiology consulted, appreciate recs - Cath (03/21): 99% pLAD occlusion s/p PCI - Continue ASA, start Plavix - Continue Atorvastatin 20 mg OD, Metoprolol 12.5 mg BID - Decrease Losartan to 25mg OD - Hold Hyzaar at this time - Echo pending IVF: None DVT Prophylaxis: Lovenox 40mg SC daily Code status: Full Code Diet: Full Pain control: Acetaminophen PRN Disposition: Home Interval Hx/ROS: Connor had an angiogram with a stent placement last night. He had an episode of vtach overnight thathas since resolved. This morning, he was resting comfortably in bed. He denied any chest pain, shortness of breath, nausea or diaphoresis today. He also denied any abdominal pain, headaches or changes in his vision. He has been ambulating to the bathroom well. He has also been tolerating food and drinks. Current Vital Signs Temp: 96.6 F (35.9 C) BP: 91/59 Pulse: 59 O2 Device: Room Air O2 Flow Rate (L/min): 2 l/min Resp: 12 Pain Ratin (out of 10) Weight: 110.2 kg (242 lb 15.2 oz) SpO2: 93 % 24 hour Intake/Output No intake/output data recorded. Lab Results - 24 Hours Procedure Component Value Units Date/Time PTT [[id number]] (Abnormal) Collected: 03/21/20 2318 Order Status: Completed Specimen: Blood Updated: 03/21/20 2338 APTT 139 secs ACTIVATED CLOTTING TIME POCT [[id number]] (Abnormal) Collected: 03/21/202119 Order Status: Completed Specimen: Blood Updated: 03/21/202140 Activated Clotting Time 246 Secs Narrative: DEVICE: [id number] TROPONIN I [[id number]] (Abnormal) Collected: 03/21/201833 Order Status: Completed Specimen: Blood Updated: 03/21/20 1906 Troponin I 19.388 ng/mL BRAIN NATRIURETIC PEPTIDE [[id number]] (Normal) Collected: 03/21/201833 Order Status: Completed Specimen: Blood Updated: 03/21/20 1905 BNP 48 pg/mL BASIC METABOLIC PANEL WITH GFR [[id number]] (Abnormal) Collected: 03/21/201833 Order Status: Completed Specimen: Blood Updated: 03/21/201857 Glucose 99 mg/dL BUN 24 mg/dL Creatinine 1.30 mg/dL BUN/Creatinine Ratio 18.5 Sodium 140 meq/L Potassium 4.8 meq/L Chloride 105 meq/L CO2 28 meq/L Anion Gap with K 12 meq/L Calcium 9.2 mg/dL Age 79 Years eGFR Non- 54 mL/min/1.73m2 eGFR 65 mL/min/1.73m2 PROTIME/INR [[id number]] (Abnormal) Collected: 03/21/201833 Order Status: Completed Specimen: Blood Updated: 03/21/201856 Protime 13.0 secs INR 1.0 Narrative: Normal INR reference range (patients not on oral anticoagulants) 0.9-1.1. INR Standard Intensity = (2.0 - 3.0) INR Higher Intensity = (2.5 - 3.5) COMPLETE BLOOD COUNT WITH DIFFERENTIAL [[id number]] (Abnormal) Collected: 03/21/201833 Order Status: Completed Specimen: Blood Updated: 03/21/201839 Narrative: The following orders were created for panel order COMPLETE BLOOD COUNT WITH DIFFERENTIAL. Procedure Abnormality Status --------- ------ LAB ONLY-COMPLETE BLOOD ...[[id number]] Abnormal Final result Please view results for these tests on the individual orders. LAB ONLY-COMPLETE BLOOD COUNT WITH DIFFERENTIAL [[id number]] (Abnormal) Collected: 03/21/201833 Order Status: Completed Specimen: Blood Updated: 03/21/201839 WBC 7.5 K/uL RBC 3.49 M/uL Hemoglobin 11.2 g/dL Hematocrit 34.7 % MCV 99.4 fL MCH 32.1 pg MCHC 32.3 g/dL RDW-CV 14.0 % RDW-SD 50.4 fl Platelet Count 199 K/uL MPV 9.9 fL Seg Neut Absolute 5.9 K/uL Lymphocytes Absolute 0.9 K/uL Monocytes Absolute 0.5 K/uL Eosinophils Absolute 0.1 K/uL Basophil Absolute 0.0 K/uL Immature Granulocyte Absolute 0.03 K/uL Neutrophils Abs. (Segs and Bands) 5,900 /uL Neutrophils Percent 79.2 % Lymphocytes Percent 12.4 % Monocytes Percent 6.6 % Immature Granulocyte Percent 0.4 % Eosinophils Percent 0.9 % Basophil Percent 0.5 % Nucleated RBC 0 /100 WBC's PTT [[id number]] (Abnormal) Collected: 03/21/20 1711 Order Status: Completed Specimen: Blood Updated: 03/21/20 172 APTT 64 secs Physical Exam: General: Awake, A&Ox3 and not in distress RS: CTA, no crackles, no wheezes CVS: RRR, Normal S1S2, no murmurs, rubs or gallops GI: BS present, soft, nondistended, non tender NS: Alert, oriented, normal speech MSK: No pedal edema, access site on R wrist clean, dry, without erythema Derm: Warm, no rash Psych: Normal affect, behavior Adali Ramirez MD Chicken Fancier, PGY-1 03/22/2020 Pager: [phone] ATTE OPERATOR Associated attestation - Boston Walton MD - 03/22/2020 2:39 PM BARRATTE OPERATOR I discussed the patient with the resident and personally interviewed and examined the patient. I verified in the medical record all resident documentation/findings, including history, physical exam, and medical decision making, and I agree with the resident's documentation. documented in this encounter H&P Notes Adali Ramirez MD - 03/21/2020 5:42 PM CST Hospital Admission History and Physical Assessment / Plan Active Problems: Essential hypertension Recurrent major depressive disorder, in remission ([facility]) Anxiety state Anemia Enlarged prostate with urinary obstruction Severe obstructive sleep apnea NSTEMI (non-ST elevated myocardial infarction) ([facility]) NSTEMI, Type I Pt presented at 1230 with R sided chest pain associated with diaphoresis, nausea and shortness of breath. Received 3 ASA 81 mg prior to admission. Trop elevated at [facility]. EKG showed ST elevation in lead V2. - Trop 19.388 at [place] - No previous echo or stress test Plan: - Repeat EKG - Continue nitro drip and heparin drip - Start Atorvastatin 20 mg OD, Metoprolol 12.5 mg BID, ASA 81 mg OD - KARISSA score of 4 with 20% risk within 14 days of NE, or urgent revascularization - Cardiology consulted, appreciate recs - Angiogram planned for tonight Chronic Conditions HTN: Hyzaar 100-12.5 mg OD Chronic pain: Gabapentin 600 mg OD GERD: Omeprazole 20 mg OD Depression: Bupropion 75 mg OD and Vortixetine 20 mg OD HPI / History / ROS Connor is a 79-year-old gentleman with a past medical history of hypertension who presented to the [facility] facility with severe 10 out of 10 right sided chest pain that did not radiate and was associated with diaphoresis, nausea and shortness of breath. This occurred at noon, when he went out to walk his dog. He tried to take his nitroglycerin tablets 3 times but the pain did not subside. He then went into the hospital for further help. He denies any headaches, changes in vision, recent fevers or chills, trauma to the chest, or any other symptoms. His pain is only resolved with nitroglycerin and resumes every time nitroglycerin was stopped. In the past, he has a history of unstable angina, and has had to use nitroglycerin on exertion and at rest for the past several months. He has a history of GERD and uses Omeprazole daily. These symptoms are not similar to any heart burn he feels normally. 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 Taking? Glucose Blood ( BLOOD GLUCOSE TEST STRIPS ) Self Yes No Misc Natural Products (LUTEIN) capsule Yes No Sig: Take 20 mg by mouth RESTASIS 0.05 % ophthalmic emulsion Self Yes No Sig: Place into both eyes Every 12 hours TRINTELLIX 20 MG tablet Yes No Si time per day acetaminophen (TYLENOL) 500 mg tablet Yes No Sig: Take 1,000 mg by mouth 2 times a day blood glucose test strip (FREESTYLE LITE) No No Sig: USE FOR TESTING ONCE DAILY DIRECTED buPROPion (WELLBUTRIN) 75 mg tablet Yes No Sig: TAKE 1 TABLET BY MOUTH TWICE A DAY MUST MAKE APPOINTMENT WITH PROVIDER gabapentin (NEURONTIN) 300 mg capsule No No Sig: TAKE 2 CAPSULES BY MOUTH EVERY NIGHT AT BEDTIME loperamide (IMODIUM) 2 mg capsule Self Yes No Sig: Take 2 mg by mouth as needed. Take 2 caps after the first loose stool, then 1 cap after each loose stool, but no more than 8 caps per day. losartan-hydroCHLOROthiazide (HYZAAR) 100-12.5 mg tablet No No Sig: TAKE 1 TABLET BY MOUTH ONCE DAILY melatonin 10 mg capsule Yes No Sig: Take 10 mg by mouth every night at bedtime nitroglycerin (NITROSTAT) 0.4 mg sublingual tablet No No Sig: Dissolve 1 tablet (0.4 mg) under the tongue Every 5 minutes as needed for chest pain May repeatevery 5 minutes for a total of 3 doses. omeprazole (PRILOSEC) 20 mg capsule Yes No Sig: Take 1 capsule (20 mg) by mouth 2 times a day before meals terbinafine (LAMISIL AT) 1 % cream No No Sig: Bid rash on tummy and groin region valACYclovir (VALTREX) 1000 mg tablet No No Sig: Take 1 tablet (1,000 mg) by mouth 3 times a day Facility-Administered Medications Last Administration Doses Remaining leuprolide acetate (6 month) (LUPRON DEPOT) intramuscular 45 mg 04/17/2017 10:45 AM leuprolide acetate (6 month) (LUPRON DEPOT) intramuscular 45 mg 10/16/2017 11:58 AM leuprolide acetate (6 month) (LUPRON DEPOT) intramuscular 45 mg 05/14/2018 11:13 AM leuprolide acetate (6 month) intramuscular injection 45 mg 10/06/2016 2:44 PM Allergies Allergen Reactions Penicillin Diarrhea Lisinopril Cough Past Medical History: Diagnosis Date Abdominal pain, generalized 04/09/2008 Acute lower UTI (urinary tract infection) 12/25/2012 STIVEN (acute kidney injury) ([facility]) 12/13/2018 Anemia, unspecified 11/24/2010 Anxiety and depression Anxiety state, unspecified 04/09/2008 Basal cell cancer Basal cell carcinoma of skin Cancer ([facility]) Carpal tunnel syndrome 10/25/2012 Cataract Depressive disorder, not elsewhere classified Elevated PSA 11/15/2012 GERD (gastroesophageal reflux disease) Gross hematuria 02/09/2015 Hypertension Hypertrophy of prostate with urinary obstruction and other lower urinary tract symptoms (LUTS) 11/15/2012 Hypoglycemia 11/24/2010 Hypoglycemia, unspecified 11/24/2010 Incomplete bladder emptying 12/25/2012 Infection due to yeast 02/09/2015 Lower urinary tract symptoms (LUTS) 04/17/2017 NSTEMI (non-ST elevated myocardial infarction) ([facility]) 03/21/2020 Numbness and tingling in hands 10/04/2012 Pain in joint, pelvic region and thigh 02/05/2010 Prostate nodule with urinary obstruction 11/15/2012 Squamous cell carcinoma Ulcer Unspecified chest pain 11/03/2009 Unspecified essential hypertension Unspecified hereditary and idiopathic peripheral neuropathy 05/17/2011 UTI (lower urinary tract infection) 12/25/2012 Past Surgical History: Procedure Laterality Date CARPAL TUNNEL Left 06/04/2013 Procedure: LEFT OPEN CARPAL TUNNEL RELEASE ;; Surgeon: Joshua Mathur MD CARPAL TUNNEL Right 08/06/2013 Procedure: RIGHT OPEN CARPAL TUNNEL RELEASE ;; Surgeon: Joshua Mathur MD CATARACT EXTRACTION EYE SURGERY GASTRIC FUNDOPLICATION GASTRORRHAPHY SUTURE PERFORATED DUODENAL GASTRIC ULCER WND INJURY HERNIA REPAIR 2 hernia repairs: "age 42's and age 10" HERNIA REPAIR TUR BLADDER TUMOR N/A 02/11/2015 Procedure: TRANSURETHRAL RESECTION BLADDER TUMOR -MEDIUM;; Surgeon: Keshawn Villalta MD Family History Problem Relation Age of Onset Hypertension Father Multiple Sclerosis Mother Diabetes Mother Stroke Mother CABG Not otherwise listed - Cancer Sister Pancreatic Not otherwise listed - Cancer Sister Kidney Disease Sister Not otherwise listed - Cancer Brother Prostate Cancer Brother Negative Child No Known Problems Maternal Aunt No Known Problems Maternal Uncle No Known Problems Paternal Aunt No Known Problems Paternal Uncle No Known Problems Maternal Grandmother No Known Problems Maternal Grandfather No Known Problems Paternal Grandmother No Known Problems Paternal Grandfather No Known Problems Other Bladder Cancer Neg Hx Kidney Cancer Neg Hx Nephrolithiasis Neg Hx Testicular Cancer Neg Hx Celiac Disease Neg Hx Cirrhosis Neg Hx Colorectal Cancer Neg Hx Colon Polyps Neg Hx Crohn Disease Neg Hx Cystic Fibrosis Neg Hx Esophageal Cancer Neg Hx Hemochromatosis Neg Hx Inflammatory Bowel Disease Neg Hx Irritable Bowel Syndrome Neg Hx Liver Cancer Neg Hx Liver Disease Neg Hx Rectal Cancer Neg Hx Stomach Cancer Neg Hx Ulcerative Colitis Neg Hx Jarad Disease Neg Hx Social History Socioeconomic History Marital status: Spouse name: Not on file Number of children: 5 Years of education: 13 Highest education level: Not on file Occupational History 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 Social Needs Financial resource strain: Not hard at all Food insecurity Worry: Never true Inability: Never true Transportation needs Medical: No Non-medical: No Tobacco Use Smoking status: Former Smoker Packs/day: 1.00 Years: 33.00 Pack years: 33.00 Quit date: 11/15/1982 Years since quittin.3 Smokeless tobacco: Never Used Substance and Sexual Activity Alcohol use: Yes Alcohol/week: 0.8 standard drinks Types: 1 Rare/Occasional per week Comment: rarely maybe every 2-3 months Drug use: No Sexual activity: Yes Partners: Female Lifestyle Physical activity Days per week: 0 days Minutes per session: Not on file Stress: Only a little Relationships Social connections Talks on phone: Once a week Gets together: Once a week Attends tenriism service: 1 to 4 times per year Active member of club or organization: No Attends meetings of clubs or organizations: Never Relationship status: Intimate partner violence Fear of current or ex partner: No Emotionally abused: No Physically abused: No Forced sexual activity: No Social History Narrative Runs Mobi-Moto Review of Systems Review of Systems Constitutional: Positive for activity change and diaphoresis. Negative for appetite change, chills and fever. Eyes: Negative for visual disturbance. Respiratory: Positive for shortness of breath. Negative for cough. Cardiovascular: Positive for chest pain. Negative for palpitations and leg swelling. Gastrointestinal: Positive for nausea. Negative for abdominal pain, constipation, diarrhea and vomiting. Genitourinary: Negative for dysuria and hematuria. Musculoskeletal: Negative for arthralgias and myalgias. Skin: Negative for pallor and rash. Neurological: Negative for dizziness, syncope, weakness, light-headedness and headaches. Hematological: Negative for adenopathy. Does not bruise/bleed easily. Physical / Results Current Vital Signs Temp: 97.3 F (36.3 C) BP: 141/82 Weight: 110.2 kg (242 lb 15.2 oz) SpO2: 94 % Resp: 16 Pulse: 75 Current BMI (>50 = increased risk): (!) 35.86 O2 Device: Room Air Pain Ratin Physical Exam Vitals signs and nursing note reviewed. Constitutional: Appearance: Normal appearance. He is obese. He is ill-appearing. HENT: Head: Normocephalic and atraumatic. Right Ear: External ear normal. Left Ear: External ear normal. Eyes: General: No scleral icterus. Right eye: No discharge. Left eye: No discharge. Extraocular Movements: Extraocular movements intact. Conjunctiva/sclera: Conjunctivae normal. Pupils: Pupils are equal, round, and reactive to light. Neck: Musculoskeletal: Normal range of motion and neck supple. Vascular: No carotid bruit. Cardiovascular: Rate and Rhythm: Normal rate and regular rhythm. Pulses: Normal pulses. Heart sounds: Normal heart sounds. No murmur. No friction rub. No gallop. Pulmonary: Effort: Pulmonary effort is normal. Breath sounds: Normal breath sounds. Abdominal: Tenderness: There is no abdominal tenderness. Musculoskeletal: Normal range of motion. General: No swelling or tenderness. Right lower leg: No edema. Left lower leg: No edema. Skin: General: Skin is warm and dry. Capillary Refill: Capillary refill takes less than 2 seconds. Neurological: General: No focal deficit present. Mental Status: He is alert and oriented to person, place, and time. ATTE OPERATOR Associated attestation - Boston Walton MD - 03/22/2020 1:45 PM BARRATTE OPERATOR I discussed the patient with the resident and personally interviewed and examined the patient. I verified in the medical record all resident documentation/findings, including history, physical exam, and medical decision making, and I agree with the resident's documentation. Stat repeat ekg, trop done. Cardiology contacted and reviewed ekg with us. Cath chelsy planned. documented in this encounter Consult Notes Amaya Chung DO - 03/21/2020 8:05 PM CST Cardiology Consult Note Consults Assessment / Plan Active Problems: NSTEMI (non-ST elevated myocardial infarction) ([facility]) Plan: cath tonight IMPRESSION AND PLAN: Non-ST segment elevation myocardial infarction. I have discussed with Dr. Vidal Dubon. I think we are going to do an angiogram today. Patient currently on a nitro drip and hekeeps having shortness of breath. His chest pain is getting better, but then he keeps having it. Ithink the best thing to do is just proceed with the catheterization. Risks and goals have been explained to the patient. Consent: Cardiac Catheterization I have reviewed the procedure, risks and goals of coronary angiography including the possibility of stent placement, including drug eluting stent, with the patient. Among the risks I specifically reviewed were the major complications of , stroke, heart attack and major vascular injury as well ascontrast reaction and possible kidney failure. I have discussed the possible need for urgent surgeryas a result of a complication. The patient understands, agrees and wishes to proceed. Pt is full code Reason for Consult HPI / History / ROS HPI REASON FOR CONSULTATION: Non-ST segment elevation myocardial infarction. HISTORY OF PRESENT ILLNESS: The patient is a very, very pleasant 76-year-old gentleman with a past medical history significant for hypertension and obesity. Patient for the last month or so, every time he goes outside he breathes the cold air. He feels he has this chest pain. It just is a sharp pain goes across the chest. He feels cold and clammy. He gets short of breath and so he has been telling his doctor. The doctor gave him nitroglycerin, which helps the pain. Meanwhile, he also had shingles and kind of like this has been dealing with this chest pain, which is going away with nitro, 2 or 3 nitro a day, but just kept kind behind on the back burner until this morning. Yesterday, he has been getting it more frequently. He has been using more nitro. He presented today going and walking outside, the pain was not getting any better, so he took 3 nitroglycerin. He drove himself to [facility] and then they brought him here. He does have some dynamic ST changes, actually V2. It has some ST-T wave inversion and ST changes; however, does not meet the criteria for ST elevation. He does have also elevated troponin of 19.3. BNP is 48. He has mild renal dysfunction. His creatinine is 1.3. He is not on any blood thinners at this point. He said he feels the pain was just across the chest. It was not radiating to the arm or neck. He did feel short of breath. He felt cold and clammy and actually sweaty. He said he always feel lightheaded when he stands up. No syncopalepisodes. No palpitation. He denies having any melena, hematochezia, hemoptysis, hematemesis, hematuria. No significant weight loss or weight gain. No orthopnea, no PND. No lower extremity edema and no syncopal episode. REVIEW OF SYSTEMS: Reviewed and otherwise have been negative. 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 Severe obstructive sleep apnea NSTEMI (non-ST elevated myocardial infarction) ([facility]) Current Facility-Administered Medications Medication Dose Route Frequency sodium chloride 0.9% flush (adult) 10 mL 10 mL IV 2 times a day and prn acetaminophen (TYLENOL) tablet 650 mg 650 mg Oral Every 4 hours prn ondansetron (ZOFRAN) injection solution 4 mg 4 mg IV Every 4 hours prn hEParin (50 units/mL) in D5W premixed IV solution (STANDARD-weight based) 0-50 Units/kg/hr IV Titrate heparin (porcine) (5000 units/1 mL) IV dose 4,000 Units 35 Units/kg IV PRN per parameter Or heparin (porcine) (5000 units/1 mL) IV dose 7,900 Units 70 Units/kg IV PRN per parameter nitroglycerin (400 mcg/mL) in D5W IV solution (premix) 5-100 mcg/min IV Titrate gabapentin (NEURONTIN) capsule 600 mg 600 mg Oral at bedtime buPROPion (WELLBUTRIN) tablet 75 mg 75 mg Oral 2 times a day omeprazole (priLOSEC) capsule 20 mg 20 mg Oral 2 times a day before meals [START ON 03/22/2020] vortioxetine (TRINTELLIX) tablet 20 mg 20 mg Oral daily sodium chloride 0.9% flush (adult) 10 mL 10 mL IV 2 times a day and prn nitroglycerin (NITROSTAT) sublingual tablet 0.4 mg 0.4 mg Sublingual Every 5 minutes prn morphine preservative free injection solution (conc: 2 mg/mL) 2 mg 2 mg IV Every 5 minutes prn melatonin tablet 3 mg 3 mg Oral Bedtime prn senna-docusate sodium (SENOKOT-S;PERICOLACE) tablet 2 tablet 2 tablet Oral 2 times a day prn And bisacodyl (DULCOLAX) suppository 10 mg 10 mg Rectal 1 time a day prn And docusate sodium (THEREVAC-SB MINI;ENEMEEZ MINI) 283 MG enema 1 enema 1 enema Rectal 1 time a day prn ondansetron (ZOFRAN ODT) dispersible tablet 4 mg 4 mg Oral 4 times a day prn And ondansetron (ZOFRAN) injection solution 4 mg 4 mg IV 4 times a day prn [START ON 03/22/2020] losartan tablet 100 mg 100 mg Oral Daily [START ON 03/22/2020] hydroCHLOROthiazide tablet 12.5 mg 12.5 mg Oral Daily metoprolol tartrate (LOPRESSOR) half-tablet 12.5 mg 12.5 mg Oral 2 times a day Allergies Allergen Reactions Penicillin Diarrhea Lisinopril Cough Past Medical History: Diagnosis Date Abdominal pain, generalized 04/09/2008 Acute lower UTI (urinary tract infection) 12/25/2012 STIVEN (acute kidney injury) ([facility]) 12/13/2018 Anemia, unspecified 11/24/2010 Anxiety and depression Anxiety state, unspecified 04/09/2008 Basal cell cancer Basal cell carcinoma of skin Cancer ([facility]) Carpal tunnel syndrome 10/25/2012 Cataract Depressive disorder, not elsewhere classified Elevated PSA 11/15/2012 GERD (gastroesophageal reflux disease) Gross hematuria 02/09/2015 Hypertension Hypertrophy of prostate with urinary obstruction and other lower urinary tract symptoms (LUTS) 11/15/2012 Hypoglycemia 11/24/2010 Hypoglycemia, unspecified 11/24/2010 Incomplete bladder emptying 12/25/2012 Infection due to yeast 02/09/2015 Lower urinary tract symptoms (LUTS) 04/17/2017 NSTEMI (non-ST elevated myocardial infarction) ([facility]) 03/21/2020 Numbness and tingling in hands 10/04/2012 Pain in joint, pelvic region and thigh 02/05/2010 Prostate nodule with urinary obstruction 11/15/2012 Squamous cell carcinoma Ulcer Unspecified chest pain 11/03/2009 Unspecified essential hypertension Unspecified hereditary and idiopathic peripheral neuropathy 05/17/2011 UTI (lower urinary tract infection) 12/25/2012 Past Surgical History: Procedure Laterality Date CARPAL TUNNEL Left 06/04/2013 Procedure: LEFT OPEN CARPAL TUNNEL RELEASE ;; Surgeon: Joshua Mathur MD CARPAL TUNNEL Right 08/06/2013 Procedure: RIGHT OPEN CARPAL TUNNEL RELEASE ;; Surgeon: Joshua Mathur MD CATARACT EXTRACTION EYE SURGERY GASTRIC FUNDOPLICATION GASTRORRHAPHY SUTURE PERFORATED DUODENAL GASTRIC ULCER WND INJURY HERNIA REPAIR 2 hernia repairs: "age 42's and age 10" HERNIA REPAIR TUR BLADDER TUMOR N/A 02/11/2015 Procedure: TRANSURETHRAL RESECTION BLADDER TUMOR -MEDIUM;; Surgeon: Keshawn Villalta MD Family History Problem Relation Age of Onset Hypertension Father Multiple Sclerosis Mother Diabetes Mother Stroke Mother CABG Not otherwise listed - Cancer Sister Pancreatic Not otherwise listed - Cancer Sister Kidney Disease Sister Not otherwise listed - Cancer Brother Prostate Cancer Brother Negative Child No Known Problems Maternal Aunt No Known Problems Maternal Uncle No Known Problems Paternal Aunt No Known Problems Paternal Uncle No Known Problems Maternal Grandmother No Known Problems Maternal Grandfather No Known Problems Paternal Grandmother No Known Problems Paternal Grandfather No Known Problems Other Bladder Cancer Neg Hx Kidney Cancer Neg Hx Nephrolithiasis Neg Hx Testicular Cancer Neg Hx Celiac Disease Neg Hx Cirrhosis Neg Hx Colorectal Cancer Neg Hx Colon Polyps Neg Hx Crohn Disease Neg Hx Cystic Fibrosis Neg Hx Esophageal Cancer Neg Hx Hemochromatosis Neg Hx Inflammatory Bowel Disease Neg Hx Irritable Bowel Syndrome Neg Hx Liver Cancer Neg Hx Liver Disease Neg Hx Rectal Cancer Neg Hx Stomach Cancer Neg Hx Ulcerative Colitis Neg Hx Jarad Disease Neg Hx Social History Socioeconomic History Marital status: Spouse name: Not on file Number of children: 5 Years of education: 13 Highest education level: Not on file Occupational History 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 Social Needs Financial resource strain: Not hard at all Food insecurity Worry: Never true Inability: Never true Transportation needs Medical: No Non-medical: No Tobacco Use Smoking status: Former Smoker Packs/day: 1.00 Years: 33.00 Pack years: 33.00 Quit date: 11/15/1982 Years since quittin.3 Smokeless tobacco: Never Used Substance and Sexual Activity Alcohol use: Yes Alcohol/week: 0.8 standard drinks Types: 1 Rare/Occasional per week Comment: rarely maybe every 2-3 months Drug use: No Sexual activity: Yes Partners: Female Lifestyle Physical activity Days per week: 0 days Minutes per session: Not on file Stress: Only a little Relationships Social connections Talks on phone: Once a week Gets together: Once a week Attends tenriism service: 1 to 4 times per year Active member of club or organization: No Attends meetings of clubs or organizations: Never Relationship status: Intimate partner violence Fear of current or ex partner: No Emotionally abused: No Physically abused: No Forced sexual activity: No Social History Narrative Runs Mobi-Moto Review of Systems Review of Systems All other systems reviewed and are negative. Physical / Results Current Vital Signs Temp: 97.3 F (36.3 C) BP: 132/82 Weight: 110.2 kg (242 lb 15.2 oz) SpO2: 97 % Resp: 16 Pulse: 65 Current BMI (>50 = increased risk): (!) 35.86 O2 Device: Room Air Pain Ratin Physical Exam Constitutional: No distress. Eyes: Conjunctivae are normal. Neck: Normal range of motion. Neck supple. No JVD present. Cardiovascular: Normal rate, regular rhythm, S1 normal and S2 normal. Exam reveals no S3 and no S4. No murmur heard. Pulmonary/Chest: Effort normal and breath sounds normal. He has no wheezes. He has no rales. He exhibits no tenderness. Abdominal: Soft. He exhibits no distension. There is no abdominal tenderness. Musculoskeletal: Normal range of motion. General: No deformity or edema. Neurological: He is alert and oriented to person, place, and time. He has normal motor skills and intact cranial nerves. Skin: Skin is warm and dry. No rash noted. No cyanosis. No jaundice or pallor. Medical Decision Making I have: Ordered laboratory, radiology or other diagnostic tests. ATTE OPERATOR documented in this encounter Miscellaneous Notes Case Mgmt - Eliane Merchant RN - 03/23/2020 10:47 AM CSTCASE MANAGEMENT / SOCIAL SERVICE FINAL TRANSITION PLAN TRANSITION DATE: 03/23/2019 TRANSITION TIME: As ready INTENDED PAYER SOURCE FOR AGENCY: Private Insurance TRANSITION DESTINATION: Home with Cardiac Rehab DOES ACCEPTING FACILITY REQUIRE COVID TESTING BEFORE DISCHARGE: N/A TRANSITION TRANSPORTATION: Family Car TRANSPORTATION PAYMENT: Not applicable TRANSITION CHOICES OFFERED: Cardiac Rehab DOES THE PATIENT HAVE A PRIMARY CARE PHYSICIAN? Yes Jeremi Zhu MD PATIENT / SUBSTITUTE DECISION MAKER GOAL UPON TRANSITION: First Choice: Cardiac Rehab PATIENT CHOICE EDUCATION: Not applicable MEDICARE 3 IP MIDNIGHT CRITERIA MET: N/A RESOURCE(S) PROVIDED: nothing needed at this time DOES PATIENT HAVE CLOTHING TO WEAR AT DISCHARGE? Yes ANTICIPATED MODE OF TRANSPORT TO AND FROM FOLLOW UP APPOINTMENTS: Drive self Family Car VERIFIED CORRECT PHARMACY IS ENTERED FOR DISCHARGE: Yes - Pharmacy: [id number] [address] METHOD OF PRESCRIBING MEDICATIONS: Medications to be E-prescribed to above pharmacy TRANSITION ROUNDING COMPLETED WITH THE FOLLOWING: Sourcing Coordinator Attending Residents COMMENTS / PATIENT AND FAMILY RESPONSE TO PLAN: Patient reviewed with FM team this morning. Plan for D/C today with outpatient Cardiac Rehab in [facility]. No further discharge concerns SPECIAL TRANSITION DAY INSTRUCTIONS TO NURSE / MD: Routine Discharge with Cardiac Rehab CURRENT READMISSION RISK SCORE / HANDOFF: Predictive Risk Score Risk of Unplanned Readmission: 16.7 Handoff given: N/A SIGNED: Eliane Merchant RN, SCRN Case Management ATTE OPERATOR Cardiac Rehab - Ryann Mendoza EP - 03/23/2020 9:05 AM CSTCardiac Rehab Phase 1 Inpatient Note: Diagnosis: NSTEMI, stent x1 Physical Activity Completed: Ambulate in lovelace Distance Ambulated: 264 feet Ambulation Assistance: SBA Patient response to Exercise: good Exercise Comments: Steady gait with pushing FWW. No complaints with activity. Gaitbelt used with activity Vitals Exercise Heart Rate - 78 bpm O2 Device - RA Exercise SpO2 - 94% Assessment/Plan: Tolerates activity well. Encouraged patient to ambulate in hallway 3-4 times daily as tolerated with gradual progression. -Progress as tolerated -Patient referred to outpatient Cardiac Rehab program -Continue to follow until until Discharge Recommendation: "Outpatient Cardiac [facility] Continue Inpatient Cardiac Rehab Plan of Care daily until discharge. Card[facility] Rehab [facility] Pager: [phone] linical Team - Ignacia Childers RN - 03/23/2020 7:40 AM CSTPatient is alert and oriented x4, NSR with HR in the 70s. No chest pains reported during this shift. Patient reports pain in his left shoulder which was treated with 650mg PRN tylenol. Right radial site clean and dry. Patient slept through the night, he is voiding adequately, had small BM During thisshift. No new acute concerns noted, call light left within reach, will continue to monitor and update provider as needed. are Planning - Ignacia Childers RN - 03/23/2020 7:40 AM BARRATTE OPERATOR Problem: RISK FOR DECREASED CARDIAC TISSUE PERFUSION Goal: ACTIVITY TOLERANCE Description: DESCRIPTION: Physiologic response to energy-consuming movements with daily activities. 1=Severly compromised, 2=Substantially compromised, 3=Moderately compromised, 4=Mildly compromised, 5=Not compromised. 03/23/2020518 by Ignacia Childers RN Outcome: NOC Rating 3 Flowsheets (Taken 03/23/2020518) Initial Score: 3 Target Score: 5 Plan of care reviewed with: Patient Patient specific goal for the day: Patient will ambulate during this shift. Patient specific goal for the stay: Patient's activity level will improve to baseline Patient Progress: Patient is alert and oriented x4, vitals signs are stable, he reported dizziness when ambulating to the bathroom, he has a study gait, no new acute concerns noted. Will continue to monitor. ase Juve - Alisha Jane RN - 03/22/2020 1:04 PM CSTCASE MANAGEMENT / SOCIAL SERVICE TRANSITION PLAN - INITIAL ASSESSMENT TRANSITION PLAN: Awaiting Medical Doctor Recommendations for Transition Will Continue to Follow for Support and Progression Towards Final Transition Plan BARRIERS TO TRANSITION: Medical barriers:. angiogram yesterday with intervention, Cardiology following, cardiac rehab following. IVF, medication adjustments. Trend trops, monitor labs, Echo results. Tele. COMMENTS / PATIENT AND FAMILY RESPONSE TO PLAN: Met with pt in room today, present at bedside. CM role explained and discharge planning discussed. Pt lives at home with his in [place], [place]. Pt is independent with ADLs. Denies any use of services/assistance or DME use at this time but reports they do have a walker available for use. Pt drives, has a PCP, and manages own medications/finances. No acute discharge needs identified at this time. CM will continue to follow for transition planning. ADMISSION DX: Nstemi, CP PATIENT STATUS: Inpatient RELEASE OF INFORMATION: Yes -- verbal for: SOURCES OF INFORMATION (See demographics for contact information): Family: Spouse Medical Doctor Medical Record Patient CURRENT LIVING SITUATION / LEVEL OF ASSISTANCE: Lives with Independent COMMUNITY SERVICES: None HEALTHCARE DIRECTIVE: Healthcare Directive provided/explained No Will provide a long-form HCD for patient and . Discussed filling HCD out and answered all questions. POWER OF MOLD CLEANER: None FINANCIAL CONCERNS: No Concerns PRIMARY CARE PHYSICIAN: Yes Jeremi Zhu MD [facility] : No IS PATIENT'S ADMISSION ASSOCIATED WITH TIA, ISCHEMIC, OR HEMORRHAGIC STROKE?: No LANGUAGE / COMMUNICATION BARRIERS: No PATIENT / SUBSTITUTE DECISION MAKER GOAL UPON TRANSITION: First Choice: Cardiac Rehab Home: Family/Friend Support and 24-Hour Supervision ANTICIPATED NEEDS, TRANSITION CHOICES OFFERED: Cardiac Rehab Home: Family/Friend Support and 24-Hour Supervision RESOURCE(S) PROVIDED: nothing needed at this time DOES PATIENT HAVE CLOTHING TO WEAR AT DISCHARGE? Yes ANTICIPATED MODE OF TRANSPORT UPON DISCHARGE: Family Car VERIFIED CORRECT PHARMACY IS ENTERED FOR DISCHARGE: Yes - Pharmacy: . [facility] [place] CURRENT READMISSION RISK SCORE Predictive Risk Score Risk of Unplanned Readmission: 17 Please refer to readmission risk assessment flowsheet for further details. SIGNED: Alisha Jane RN-BSN. Case Management - 6CD [facility] P: [phone] F: [phone] Rt: [phone] are Planning - Carina Guevara RN - 03/22/2020 11:46 AM BARRATTE OPERATOR Problem: RISK FOR DECREASED CARDIAC TISSUE PERFUSION Goal: ACTIVITY TOLERANCE Description: DESCRIPTION: Physiologic response to energy-consuming movements with daily activities. 1=Severly compromised, 2=Substantially compromised, 3=Moderately compromised, 4=Mildly compromised, 5=Not compromised. Outcome: NOC Rating 4 Flowsheets (Taken 03/22/2020 1143) Initial Score: 4 Target Score: 5 Plan of care reviewed with: Patient Patient specific goal for the day: Patient will maintain adequate tissue perfusion this shift Patient specific goal for the stay: Patient will return to baseline perfusion status Patient Progress: Patient admitted for STEMI. Went through PCI-nagio last night. Resting in bed denies any chest pain. VSS. will continue to monitor linical Team - Ignacia Childers RN - 03/22/2020 7:50 AM CSTPatient is alert and oriented x4, NSR, patient weaned to RA with oxygen saturation above 90%. Patient had angio done, radial band removed, guaze and transparent dressing applied. No excessive bleeding noted to site. Patient reported sharp pain in his chest after having stent placed which was treated with PRN morphine. No new acute concerns noted, call light left within reach, will continue to monitorpatient and update provider as needed. ostOp Progress Note - Vidal Dubon MD - 03/21/2020 9:35 PM BARRATTE OPERATOR Immediate Post-Cardiac Catheterization Progress Note Att. Phys: Boston Walton MD Operative Date: 03/21/2020 Surgeon: Vidal Dubon MD [employer] Supervisor: none Pre-Operative Diagnosis: NSTEMI. Post-Operative Diagnosis: 99% occluded prox LAD - s/p PCI with a 3.5*18 mm Seng YOGI. Anesthesia Type: See Methods Examiner procedure log Operative Procedure: CAG, LHC, PCI-LAD. Specimens: None Fluids Given: See Methods Examiner procedure log Urine Output: See Methods Examiner procedure log Estimated Blood Loss: 10 mL Drains: none Findings: Coronary anatomy- 99% occluded prox LAD - s/p PCI with a 3.5*18 mm Truro YOGI. Left ventriculography- EDP mildly elevated at 17 mm Hg. Hemodynamics- normal BP. Complications: None Disposition: ASA indefinitely, Plavix at least for 1 yr. Postoperative Condition: stable The procedure was performed using moderate conscious sedation. The patient was monitored utilizing continuous pulse oximetry, continuous telemetry and intermittent blood pressure measurements throughout the procedure without notable aberration in vitals. Please see the patient's procedure log for fur ther information. Physician start time 09:03 am Physician stop time 09:30 am hysician Pre Procedure Evaluation - Vidal Dubon MD - 03/21/2020 8:53 PM CSTMODERATE SEDATION: Moderate Sedation Adult Without Short Form Physician Pre-Procedure Sedation Plan (Moderate Sedation) (Note: A complete H&P is required for procedures requiring anesthesia and for inpatients.) Indication for Care: I affirm the indication for the procedure is still present. History & Physical: An up to date H&P has been completed and is available for this procedure. Date of H&P: 03/21/20 Chief Complaint/HPI/Reason for Procedure: NSTEMI. Sedation Plan: Moderate Sedation: ASA Score = 3 Mallampati Class = II (soft palate, uvula, fauces visible) Physician's Affirmation of Discussion: I have explained the known risks, benefits, goals, and alternatives to the procedure or treatment and/or sedation. I affirm the indication for the procedure is still present. I have assessed the patient and vital signs immediately prior to sedation and concur with sedation plan. linical Team - Elizabeth Leblanc RN - 03/21/2020 7:25 PM CSTICU Nurse Consult Date of Call: 03/21/20 Time ICU Nurse Consult Called: [phone] Location: [facility] S / Reason for Activating: Respiratory: Cardiac: Chest pain Neurological: Signs and Symptoms of Sepsis: No Equipment: none Other: B: Patient admitted from outside facility for complaints of chest pain. Had already tried nitro at home without relief. A: ICU Nurse consult for chest pain. Patient rating chest pain a 8/10 that comes and goes. EKG done.Team looked at EKG and stated they were going to contact Dr. Villar. Patient is on a heparin And nitro gtt. Bedside RN titrating up on nitro for chest pain. No further interventions at this time. R / Patient Disposition: Stabilized with GAMES MANAGER intervention Provider Name and Time Notified: Dr. Walton. Family or Bicycle Messenger notified: no Additional Comments: ATTE OPERATOR Clinical Team - Carina Guevara RN - 03/21/2020 5:00 PM CSTPatient admitted from outside facility, settled in room VSS. Complains chest pain 6/10. Was on Heparin and Nitro gtt. Upon Admission to [facility], skin assessment completed with Marcella VASQUEZ. Upon skin assessment including pressure points findings include:blanchable redness to coccyx and heals Plan/Intervention: pressure redistribution mattress, patient able to self reposition. documented in this encounter Plan of Treatment Date Type Specialty Care Team Description 04/02/2020 Office Visit Family Practice Jeremi Zhu MD [address] [place], [place] [address] [phone] 06/30/2020 Office Visit Urology Keshawn Villalta MD [address] [place] [address] [phone] 09/24/2020 Office Visit Dermatology Yesenia Ahumada PA [address] [address] [phone] Name Type Priority Associated Diagnoses Date/Ti me EKG CVS STAT 03/22/2020 3:1 7 AM BARRATTE OPERATOR EKG to be done 3 hours post CVS Routine 03/22/2020 3:17 AM BARRATTE OPERATOR coronary intervention Name Type Priority Associated Diagnoses Order S [facility] CLINIC REFERRAL CARDIAC Referral Routine Stented coronary artery Ordered: 03/23/2020 REHAB NON ONE CHART documented as of this encounter Procedures Procedure Name Priority Date/Time Associated Comments Diagnosis LIPID PANEL Routine 03/23/2020 6:19 Results for this AM BARRATTE OPERATOR procedure are i n the results section. TROPONIN I Routine 03/23/2020 6:19 Results for this AM BARRATTE OPERATOR procedure are i n the results section. BASIC METABOLIC Routine 03/23/2020 6:19 Results for this PANEL AM BARRATTE OPERATOR procedure are i n the results section. ECHO ADULT COMPLETE JANICE 03/22/2020 2:52 Resu lts for this PM BARRATTE OPERATOR procedure are i n the results section. EKG Routine 03/22/2020 3:17 AM BARRATTE OPERATOR EKG STAT 03/22/2020 3:17 AM BARRATTE OPERATOR PTT Timed Routine 03/21/2020 11:18 Results fo r this PM BARRATTE OPERATOR procedure are i n the results section. ACTIVATED CLOTTING Routine 03/21/2020 9:20 Resul ts for this TIME POCT PM BARRATTE OPERATOR procedure are i n the results section. CARDIAC CATH STAT 03/21/2020 9:19 Results for this POSSIBLE ANGIOPLASTY PM BARRATTE OPERATOR procedu re are in [employer] the results section. EKG STAT 03/21/2020 7:02 Results for this PM BARRATTE OPERATOR procedure are i n the results section. LAB ONLY-COMPLETE STAT 03/21/2020 6:34 Result s for this BLOOD COUNT WITH PM BARRATTE OPERATOR procedure a re in DIFFERENTIAL the results section. PROTIME/INR STAT 03/21/2020 6:34 Results for this PM BARRATTE OPERATOR procedure are i n the results section. TROPONIN I STAT 03/21/2020 6:34 Results for this PM BARRATTE OPERATOR procedure are i n the results section. BASIC METABOLIC STAT 03/21/2020 6:34 Results for this PANEL PM BARRATTE OPERATOR procedure are i n the results section. LAB ONLY-COMPLETE STAT 03/21/2020 6:34 Result s for this BLOOD COUNT WITH PM BARRATTE OPERATOR procedure a re in DIFFERENTIAL the results section. BRAIN NATRIURETIC STAT 03/21/2020 6:34 Result s for this PEPTIDE PM BARRATTE OPERATOR procedure are i n the results section. PTT JANICE 03/21/2020 5:11 Results for this PM BARRATTE OPERATOR procedure are i n the results section. documented in this encounter Results BASIC METABOLIC PANEL WITH GFR (03/23/2020 6:19 AM BARRATTE OPERATOR) Pathologist Sig nature Glucose 100 70 - 100 mg/dL [address] BUN 22 6 - 22 mg/dL [address] Creatinine 1.27 0.80 - 1.[address] mg/dL BUN/Creatinine Ratio 17.3 10.0 - 25.[address] Sodium 139 135 - 145 meq/L [address] Potassium 4.4 3.5 - 5.3 meq/L [address] Chloride 103 99 - 110 meq/L [address] CO2 28 20 - 29 meq/L [address] Anion Gap with K 12 6 - 20 meq/L [address] Calcium 8.8 8.5 - 10.5 mg/dL [address] Age [address] eGFR Non- 55 (L) >=[address] [place] mL/min/1.73m2 eGFR 67 >=[address] mL/min/1.73m2 Specimen Blood - Blood specimen (specimen) Performing Organization Address City/State/Zipcode Phone Number [address] [facility] [place] [address] LIPID PANEL (03/23/2020 6:19 AM BARRATTE OPERATOR) Pathologist Sig nature Cholesterol 160 100 - 200 mg/dL [facility] Triglyceride 129 50 - 150 mg/dL [facility] HDL 46 40 - 80 mg/dL [facility] LDL 88 0 - 129 mg/dL [facility] Specimen Blood - Blood specimen (specimen) Performing Organization Address City/[facility]/Zipcode Phone Number [facility] [address] [place] [address] [phone] TROPONIN I (03/23/2020 6:19 AM BARRATTE OPERATOR) Pathologist Sig nature Troponin I 29.785 (H) 0.000 - 0.028 ng/mL [address] Specimen Blood - Blood specimen (specimen) Performing Organization Address [facility] Phone Number [address], [place] [address] ECHO ADULT COMPLETE (03/22/2020 2:52 PM BARRATTE OPERATOR) Specimen Narrative Performed At This result has an attachment that is no t available. [facility] Patient: CONNOR FITZGERALD MR#: [id number] Exam Date: 03/22/2020 Transthoracic Echocardiogram [facility] [address] [place] [id number] BP: 93/60 mmHg HR: 68 bpm : 1940 Exam Location: Bedside Height: 69.00 "(175.3 cm) Age: 79 year(s) Patient Room: [facility] Weight: 250 lbs.(113.40 kg) Gender: Male Patient Status: Inpatient BSA: 2.27 m2 Chef Manager: GABO DARBY S, RVT Reading Physician: Devin FARLEY Ordering Physician: RICARDO CÁRDENAS APRN-MIHAELA Referring Physician: DEENA SANTANA Procedure Indication(s): s/p LAD st ent Examination: TTE Complete 2D(m-mode), Complete Spectral Doppler, Color Doppler, with Contrast,Optison Image Quality: Poor Technical Limitations: Echocardiographic views were limited by poor acoustic window availability. Clinical History Most Recent PCI Date: 03/21/2020 Conclusions Left Ventricle: Normal left ventricular size. Mildly inc reased left ventricular wall thickness. Lazt-rh-mbqlxdahdv reduced left ventricular systolic function. The ejection fraction is visua lly estimated to be 40 %. The basal anteroseptal segment is hypokinetic. The mid anteroseptal, apical anterior, apical se ptal, apical inferior, apical lateral and apex wall segments are akinetic. Mitral Valve: Trivial mitral regurgitation. Right Ventricle: Normal right ventricular size. Unable to assess right ventricular function due to poor image quality. Tricuspid Valve: Trivial tricuspid regurgitation. Comparison Study Comparison Study: No previous echo was available for c omparison Findings Left Ventricle: Normal left ventricular size. Mildly inc reased left ventricular wall thickness. Unqv-ag-bazfuzvrqs reduced left ventricular systolic function. The ejection fraction is visua lly estimated to be 40 %. The basal anteroseptal segment is hypokinetic. The mid anteroseptal, apical anterior, apical se ptal, apical inferior, apical lateral and apex wall segments are akinetic. Grade 1 left ventricular diastolic dysfunction. Left Atrium: Mildly dilated left atrium. Aortic Valve: The aortic valve is tricuspid. Mild aort ic cuspal thickening. Normal aortic cuspal mobility. No significant aortic regurgitation. No aortic stenosis. Aorta: The sinus of valsalva is normal in size measuring 39.0 mm. The ascending aorta is normal in size measuring 37.0 mm. Mitral Valve: Mild mitral leaflet thickening. Trivial mitral regurgitation. No mitral stenosis. IAS: Atrial septum is not well visualized. Right Ventricle: Normal right ventricular size. Unable to assess right ventricular function due to poor image quality. Unable to assess right ventricular wall thickness. TAPSE measur es 20 mm. Tricuspid valve lateral annulus peak systolic velocity is 13.7 cm/sec. Pulmonary Artery: The tricuspid jet envelope definition is inadequate for estimation of RV systolic pressure. Pulmonary Vein: Pulmonary veins not well visualized. Right Atrium: Normal right atrial size by visual assessment. Tricuspid Valve: Normal tricuspid valve structure. Trivial tricuspid re gurgitation. Pulmonic Valve: Pulmonary valve not well visualized. No significant pulmonary regurgitation. No pulmonary stenosis. IVC: Dilated IVC with normal respirophasic changes. Pericardium: No significant pericardial effusion. There is pericard ial fat. Exam Details Image Quality: Poor Measurements Left Ventricle Aortic Valve Label Value Normal Value Label Value Normal Value LVDd, 2D 52.4 mm LVOT Vmax 96 cm/s LVDs, 2D 37.9 mm AV Vmax 142 cm/s IVSd, 2D 12.1 mm LVOTd 21 mm LVPWd, 2D 10.7 mm LVOT VTI 19 cm FS, 2D 28 % LVOT PGmax 4 mmHg LVEDV, 2D 132 ml AV Vmean 101 cm/s LVESV, 2D 62 ml AV VTI 28.9 cm Cardiac Output 4.49 L/min AV PGmax 8 mmHg Cardiac Index 1.98 AV PGmean 5 mmHg L/min/m-sq M[place]ISON (Vmax) 2.3 cm-sq Right Ventricle AV Vmax, Caliper 142 cm/s Label Value Normal Value Mitral Valve TAPSE 20 mm Label Value Normal Value S' Tissue Doppler 13.7 MV E Vmax 85 cm/s cm/sec MV A Vmax 74 cm/s Left Atrium MV E/A 1.15 Label Value Normal Value MV E/E' lateral 11.1 LADs Long. 60 mm MV E/E' septal 9.2 LA Volume Index 35.9 ml/m-sq MV Dec Time 192 ms Aorta MV E' septal 9.3 cm/s Label Value Normal Value MV PHT 0.06 s Ao Asc 37 mm MVA PHT 3.9 cm-sq Ao Sinus, 2D 39 mm MV E' lateral 7.7 cm/s Heart Rate Tricuspid Valve Label Value Normal Value Label Value Normal Value Heart Rate 68 bpm RA Pressure 8 mmHg Pulmonic Valve Label Value Norm al Value PV Vmax 95 cm/s PV PGmax 4 mmHg Contrast Details Contrast: 4.0 ml Optison is requested. The patient denies contraindications and gives verbal consent. Optison contrast (3 ml of activated Opti son diluted with 3 ml of saline) was used to evaluate left ventricular function to enhance endocardial borde r delineation Lot #: [id number] Electronically signed by LIA ARMSTRONG MD on 021 at 04:07 PM Wall Motion Scores -1 - Not Scored, 0 - Unknown, 1 - Normal or hyperkinesia, 2 - Hypokinesia, 3 - Akinesia, 4 - Dyskinesia, 5 - Aneurysm Procedure Note Interface, Inc Results No Pull Forward - 03/22/2020 4:10 PM BARRATTE OPERATOR Patient: CONNOR FITZGERALD MR#: [id number] Exam Date: 03/22/2020 Transthoracic Echocardiogram [facility] [address] [place] [address] BP: 93/60 mmHg HR: 68 bpm : 1940 Exa m Location: Bedside Height: 69.00 "(175.3 cm) Age: 79 year(s) Pat ient Room: [facility] Weight: 250 lbs.(113.40 kg) Gender: Male Pat ient Status: Inpatient BSA: 2.27 m2 Chef Manager: FRANCES LAMBERT, RDCS, RVT Reading Physician: LIA GAUTHIER MD Ordering Physician: RICARDO LAY, GOVERNMENT SERVICE EXECUTIVE-MUSHROOM GROWER Referring Physician: DEENA GLASGOW Procedure Indication(s): s/p LA D stent Examination: TTE Co mplete 2D(m-mode), Complete Spectral Doppler, Color Doppler, with Contrast,Optison Image Quality: Poor Technical Limitations: Echoca rdiographic views were limited by poor acoustic window availability. Clinical History Most Recent PCI Date: 03/21/2020 Conclusions Left Ventricle: Normal left ventricular size. Mildly inc reased left ventricular wall thickness. Gbpn-jx-xvcermvujr reduced left ventricular systolic function. The ejection fraction is visua lly estimated to be 40 %. The basal anteroseptal segment is hypokinetic. The mid anteroseptal, apical anterior, apical se ptal, apical inferior, apical lateral and apex wall segments are akinetic. Mitral Valve: Trivial mitral regurgitation. Right Ventricle: Normal right ventricular size. Unable to assess right ventricular function due to poor image quality. Tricuspid Valve: Trivial tricuspid regurgitation. Comparison Study Comparison Study: No previous echo was a vailable for comparison Findings Left Ventricle: Normal left ventricular size. Mildly inc reased left ventricular wall thickness. Tedw-ys-fbyifpgohz reduced left ventricular systolic function. The ejection fraction is visua lly estimated to be 40 %. The basal anteroseptal segment is hypokinetic. The mid anteroseptal, apical anterior, apical se ptal, apical inferior, apical lateral and apex wall segments are akinetic. Grade 1 left ventricular diastolic dysfunction. Left Atrium: Mildly dilated left atrium. Aortic Valve: The aortic valve is tricuspid. Mild aort ic cuspal thickening. Normal aortic cuspal mobility. No significant aortic regurgitation. No aortic stenosis. Aorta: The sinus of valsalva is normal in size measuring 39.0 mm. The ascending aorta is normal in size measuring 37.0 mm. Mitral Valve: Mild mitral leaflet thickening. Trivial mitral regurgitation. No mitral stenosis. IAS: Atrial septum is not well visualized. Right Ventricle: Normal right ventricular size. Unable to assess right ventricular function due to poor image quality. Unable to assess right ventricular wall thickness. TAPSE measur es 20 mm. Tricuspid valve lateral annulus peak systolic velocity is 13.7 cm/sec. Pulmonary Artery: The tricuspid jet envelope definition is inadequate for estimation of RV systolic pressure. Pulmonary Vein: Pulmonary veins not well visualized. Right Atrium: Normal right atrial size by visual asses sment. Tricuspid Valve: Normal tricuspid valve structure. Trivia l tricuspid regurgitation. Pulmonic Valve: Pulmonary valve not well visualized. No significant pulmonary regurgitation. No pulmonary stenosis. IVC: Dilated IVC with normal respirophasic ch anges. Pericardium: No significant pericardial effusion. The re is pericardial fat. Exam Details Image Quality: Poor Measurements Left Ventricle Aortic Valve Label Value Nor mal Value Label Value Normal Value LVDd, 2D 52.4 mm LVOT Vmax 96 cm/s LVDs, 2D 37.9 mm AV Vmax 142 cm/s IVSd, 2D 12.1 mm LVOTd 21 mm LVPWd, 2D 10.7 mm LVOT VTI 19 cm FS, 2D 28 % LVOT PGmax 4 mmHg LVEDV, 2D 132 ml AV Vmean 101 cm/s LVESV, 2D 62 ml AV VTI 28.9 cm Cardiac Output 4.49 L/min AV PGmax 8 mmHg Cardiac Index 1.98 AV PGmean 5 mmHg L/min/m-sq AV A (Vmax) 2.3 cm-sq Right Ventricle AV Vmax, Caliper 142 cm/s Label Value Nor mal Value Mitral Valve TAPSE 20 mm Label Value Normal Value S' Tissue Doppler 13.7 MV E Vmax 85 cm/s cm/sec MV A Vmax 74 cm/s Left Atrium MV E/A 1.15 Label Value Nor mal Value MV E/E' lateral 11.1 LADs Long. 60 mm MV E/E' septal 9.2 LA Volume Index 35.9 ml/m-sq MV Dec Time 192 ms Aorta MV E' septal 9.3 cm/s Label Value Nor mal Value MV PHT 0.06 s Ao Asc 37 mm MVA PHT 3.9 cm-sq Ao Sinus, 2D 39 mm MV E' lateral 7.7 cm/s Heart Rate Tricuspid Valve Label Value Normal Value Label Value Nor mal Value Heart Rate 68 bpm RA Pressure 8 mmHg Pulmonic Valve Label Value Nor mal Value PV Vmax 95 cm/s PV PGmax 4 mmHg Contrast Details Contrast: 4.0 ml Optison is requested. The patient denies contraindications and gives verbal consent. Optison contrast (3 ml of activated Opti son diluted with 3 ml of saline) was used to evaluate left ventricular function to enhance end ocardial border delineation Lot #: [id number] Wall Motion Scores -1 - Not Scored, 0 - Unknown, 1 - Normal or hyperkinesia, 2 - Hypokinesia, 3 - Akinesia, 4 - Dyskinesia, 5 - Aneurysm Performing Organization Address [facility] Phone [place] [facility] F, [place] PTT (03/21/2020 11:18 PM BARRATTE OPERATOR) Pathologist Sig nature APTT 139 (H) 24 - 35 secs [place] [id number] [facility]INIC Specimen Blood - Blood specimen (specimen) Performing Organization Address [facility] Phone [place] [address] [place] [address] ACTIVATED CLOTTING TIME POCT (03/21/2020 9:20 PM BARRATTE OPERATOR) Pathologist Sig nature Activated Clotting 246 (H) 100 - [address] [facility] POINT OF CARE TESTING Specimen Blood - Blood specimen (specimen) Narrative Performed At DEVICE: [id number] [facility] POINT OF CARE TESTING Performing Organization Address [facility] Phone Number [facility] POINT OF [address] [place] [address] CARE TESTING Cardiac Cath Possible Angioplasty Stent Methods Examiner - Left (03/21/2020 9:19 PM BARRATTE OPERATOR) Specimen Narrative Performed At This result has an attachment that is no t available. [facility] Patient: CONNOR FITZGERALD [facility] Exam Date: 03/21/[address] Exam Time: 09:19 PM-09:30 PM [place], [place] [id number] Department of Interventional Cardiology Cardiac Interventional Report, Diagnostic Left Heart C atheterization Report : 1940 Fluoro Time: 7.2 min. Patient Status: Inpatient Age: 79 year(s) Cath Status: Patient Room: [facility] Gender: Male Referring Physician: DEENA NWADIBIA Diagnostic Computer Systems Technician: VIDAL DUBON MD Electrostatic Powder Coating Technician: VIDAL DUBON MD Indication: Angina/NE: myocardial infa rction without ST elevation (NSTEMI). Diagnostic Conclusions: - There is significant single vessel coronary artery d isease Interventional Conclusions: - A successful intervention of the LAD w as performed with a YOGI. 0% residual stenosis post PCI. Interventional Summary Proximal left anterior descending: A suc cessful Drug Eluting Stent was deployed using a RESOLUTE SNEG RX3.40U86MD. Procedures Performed: Fluoro 0.1-60 Minutes. Medication/Infusi on/Drip. Art Access - R radial artery. Left Heart Cath No Ventriculogram. Selective Lt Coronary Angiography. Activated Clotting Time. PTCA. Drug Eluting Stent Placement. Selective Rt Coronary Angiography. Radial Artery Compression Device. Diagnostic Findings: Coronary Angiography The coronary circulation is right dominant. Left Main Left main artery: The segment is large. Angiography sh ows no disease. Left Anterior Descending Left anterior descending artery: The seg ment is moderately sized. Proximal left anterior descending: There is a 99 % in-stent restenosis. First diagonal: The segment is moderately sized. Angiography shows no disease. Circumflex Circumflex artery: The segment is large. Proximal circumflex: There is an 80 % stenosis. First obtuse marginal: The segment is large. Angiography shows no disease. Right Coronary Right coronary artery: The segment is la rge. Angiography shows no disease. Right posterior descending artery: The segment is large. Angiography shows no d isease. Right Posterolateral Segment: The segment is large. Angiography shows no disease. Left Heart Cath Ejection fraction was not calculated. Interventional Findings: PCI Procedure Data: The syntax score is low. Interventional Details Proximal left anterior descending: The i nitial stenosis was 99 %. This was an ACC/AHA High/C lesion for intervention. Guidewire crossing was successful. A successful Balloon angioplasty was per formed using a CATH GUIDE 5FR LAUNCHER [id number] during setup, a BMW HC .014 J 190CM [id number] during s etup, and a NC EUPHORA RX 3.0X12 During Procedure. The total number of attempt(s) was 3. Th e maximum inflation pressure was 20(alka). A successful Drug Eluting Stent was depl oyed using a RESOLUTE SENG [id number] During Procedure. The total number of attempt(s) was 1. Th e maximum inflation pressure was 18(alka). Following intervention there is a 0 % re sidual stenosis. There was KARISSA Flow 2 before the procedure and KARISSA Flow 3 following the procedure. No significant vessel dissect ion noted. Procedure Narrative: Access Right radial artery: The puncture site was infiltrated with 1 % Lidocaine. Vascular access was obtained using modified seldinger technique and a GLIDESHEATH SLENDER 6FR [id number] was advanced into the vessel. Hemostasis/Sheath Status: Hemostasis was successful using mechanical compression (DEV RAD COMP R BAND 29 CM 3529). Coronary Angiography Left Coronary System: A catheter was positioned into the Vesse l Ostium under fluoroscopic guidance. Contrast injections were performed using hand injection. Angiograms were obtain ed in multiple views. Right Coronary System: A catheter was positioned into the Vesse l Ostium under fluoroscopic guidance. Contrast injections were performed using hand injection. Angiograms were obtain ed in multiple views. Hemodynamic Impressions General Impressions: Hemodynamic assessm ent demonstrates No systemic hypertension, Left ventricular end diastolic pressure is normal. Hemodynamic Findings Pressures: Baseline: LV pressure 123mm Hg, EDP 20. Baseline: AO pressure 114/64mmHg, mean 101. Hemodynamic Pressures-Phase: Baseline Location : LV Pressure s : 123 mmHg Pressure ed : 20 mmHg HR : 65 bpm Hemodynamic Pressures-Phase: Baseline Location : Ao Pressure s : 114 mmHg Pressure d : 64 mmHg Pressure m : 101 mmHg HR : 73 bpm Flow Calculations, Phase: Baseline VO2: 279.94 ml/min Shunts Acute complication: No complications Contrast: Description Dose Unit HIS No. Reference No. Serial No. Lot No. Omnipaque 125. 000 ml C34 C34 X-Ray: Exam total DAP: 2672.06 cGycm- sq Air Kerma/Exam Total Dose: 195 mGy Ordering Physician: VIDAL DUBON MD CCL Freight Loading Supervisor: WASHINGTON ROCHA RN Scrub: SHAHZAD MENDOZA Monitor: MARY ELLEN BARR Die Setter: RT LOTUS(R) Primary Computer Systems Technician: AMAYA CHUNG DO Diagnostic Physician Signature: 21 at 01:06 PM (No Signature Object) Interventional Physician Signature: 21 at 01:06 PM (No Signature Object) Pre - Pre - Post - Post - Procedure Note Interface, Inc Results No Pull Forward - 03/22/2020 1:10 PM BARRATTE OPERATOR Patient: CONNOR FITZGERALD [facility] Exam Date: 03/21/[address] Exam T jocelynn: 09:19 PM-09:30 [place] [address] [facility] Interventional Cardiology Cardiac Interventional Report, Diagnosti c Left Heart Catheterization Report : 1940 Fluoro Time: 7.2 min. Patient Status: Inpatient Age: 79 year(s) Cath Status: Patient Room: [facility] Gender: Male Referring Physician: DEENA SANTANA Diagnostic Computer Systems Technician: VIDAL MONTIEL MD Electrostatic Powder Coating Technician: VIDAL MONTIEL MD Indication: Angina/NE: myocardial infar ction without ST elevation (NSTEMI). Diagnostic Conclusions: - There is significant single vessel cor onary artery disease Interventional Conclusions: - A successful intervention of the LAD w as performed with a YOGI. 0% residual stenosis post PCI. Interventional Summary Proximal left anterior descending: A suc cessful Drug Eluting Stent was deployed using a RESOLUTE SENG [id number]. Procedures Performed: Fluoro 0.1-60 Minutes. Medication/Infusi on/Drip. Art Access - R radial artery. Left Heart Cath No Ventriculogram. Selective Lt Coronary Angiography. Activated Clotting Time. PTCA. Drug Eluting Stent Placement. Selective Rt Coronary Angiography. Radial Artery Compression Device. Diagnostic Findings: Coronary Angiography The coronary circulation is right domina nt. Left Main Left main artery: The segment is large. Angiography shows no disease. Left Anterior Descending Left anterior descending artery: The seg ment is moderately sized. Proximal left anterior descending: There is a 99 % in-stent restenosis. First diagonal: The segment is moderately sized. Angiography shows no disease. Circumflex Circumflex artery: The segment is large. Proximal circumflex: There is an 80 % stenosis. First obtuse marginal: The segment is large. Angiography shows no d isease. Right Coronary Right coronary artery: The segment is la rge. Angiography shows no disease. Right posterior descending artery: The segment is large. Angiography shows no d isease. Right Posterolateral Segment: The segment is large. Angiography shows no disease. Left Heart Cath Ejection fraction was not calculated. Interventional Findings: PCI Procedure Data: The syntax score is low. Interventional Details Proximal left anterior descending: The i nitial stenosis was 99 %. This was an ACC/AHA High/C lesion for intervention. Guidewire crossing was successful. A successful Balloon angioplasty was per formed using a CATH GUIDE 5FR LAUNCHER [id number] during setup, a BMW HC .014 J 190CM [id number] during s etup, and a NC EUPHORA RX 3.0X12 During Procedure. The total number of attempt(s) was 3. Th e maximum inflation pressure was 20(alka). A successful Drug Eluting Stent was depl oyed using a RESOLUTE SENG RX3.60I15AM During Procedure. The total number of attempt(s) was 1. Th e maximum inflation pressure was 18(alka). Following intervention there is a 0 % re sidual stenosis. There was KARISSA Flow 2 before the procedure and KARISSA Flow 3 following the procedure. No significant vessel dissection noted. Procedure Narrative: Access Right radial artery: The puncture site was infiltrated with 1 % Lidocaine. Vascular access was obtained using modified seldinger technique and a GLIDESHEATH SLENDER 6FR [id number] was advanced into the vessel. Hemostasis/Sheath Status: Hemostasis was successful using mechanical compression (DEV RAD COMP R BAND 29 CM 3529). Coronary Angiography Left Coronary System: A catheter was positioned into the Vesse l Ostium under fluoroscopic guidance. Contrast injections were performed using hand injection. Angiogra ms were obtained in multiple views. Right Coronary System: A catheter was positioned into the Vesse l Ostium under fluoroscopic guidance. Contrast injections were performed using hand injection. Angiogra ms were obtained in multiple views. Hemodynamic Impressions General Impressions: Hemodynamic assessm ent demonstrates No systemic hypertension, Left ventricular end diastolic pressure is normal. Hemodynamic Findings Pressures: Baseline: LV pressure 123mmH g, EDP 20. Baseline: AO pressure 114/64mmHg, mean 101. Hemodynamic Pressures-Phase: Baseline Location : LV Pressure s : 123 mmHg Pressure ed : 20 mmHg HR : 65 bpm Hemodynamic Pressures-Phase: Baseline Location : Ao Pressure s : 114 mmHg Pressure d : 64 mmHg Pressure m : 101 mmHg HR : 73 bpm Flow Calculations, Phase: Baseline VO2: 279.94 ml/min Shunts Acute complication: No complicatio ns Contrast: Description Dose Un it HIS No. Reference No. Serial No. Lot No. Omnipaque 125.000 ml C34 C34 X-Ray: Exam total DAP: 2672.06 cGycm-sq Air Kerma/Exam Total Dose: 195 mGy Ordering Physician: VIDAL DUBON MD [facility] Freight Loading Supervisor: WASHINGTON BECK, RN Scrub: BALBINA MENDOZA Monitor: MARY ELLEN Underwood Die Setter: KARLA MCNAIR, RT(R) Primary Computer Systems Technician: AMAYA FORRESTER AND, DO Diagnostic Physician Signature: (No Signature Object) Interventional Physician Signature: (No Signature Object) Pre - Pre - Post - Post - Performing Organization Address [facility] [place] Number [facility] [place], [place] EKG (03/21/2020 7:02 PM BARRATTE OPERATOR) Pathologist Sig nature EKG WAVEFORM [facility] Sinus rhythm with 1st degree A-V block Septal infarct , age undetermined Abnormal ECG Ventricular Rate: 68 BPM Atrial Rate: 68 BPM P-R Interval: 220 ms QRS Duration: 94 ms Q-T Interval: 408 ms QTc Calculation(Bazett): 433 ms Calculated P [place]: 59 degrees Calculated R [place]: -3 degrees Calculated T [place]: 94 degrees Specimen Narrative Performed At This result has an attachment that is no t available. Performing Organization Address [facility] Phone Number [facility] LAB ONLY-COMPLETE BLOOD COUNT WITH DIFFERENTIAL (03/21/2020 6:34 PM BARRATTE OPERATOR) Pathologist Sig nature WBC 7.5 4.0 - 11.0 K/uL [address] RBC 3.49 (L) 4.40 - 5.[address] M/uL Hemoglobin 11.2 (L) 13.5 - 17.[address] g/dL Hematocrit 34.7 (L) 40.0 - 50.0 % [address] MCV 99.4 (H) 80.0 - 98.[address] MCH 32.1 25.5 - 34.[address] MCHC 32.3 31.5 - 36.[address] g/dL RDW-CV 14.0 11.5 - 15.5 % [address] RDW-SD 50.4 (H) 35.5 - 50.[address] Platelet Count 199 140 - 400 K/uL [address] MPV 9.9 8.5 - 12.[address] Seg Neut Absolute 5.9 1.8 - 8.0 K/uL [address] Lymphocytes Absolute 0.9 0.8 - 4.1 K/uL [place] [address] [facility] Monocytes Absolute 0.5 0.0 - 1.0 K/uL [address] Eosinophils Absolute 0.1 0.0 - 0.7 K/uL [place] [address] [facility] Basophil Absolute 0.0 0.0 - 0.2 K/uL [address] Immature Granulocyte 0.03 0.00 - 0.[address] Absolute K/uL Neutrophils Abs. 5,900 /uL [address] (Segs and Bands) Neutrophils Percent 79.2 % [address] Lymphocytes Percent 12.4 % [address] Monocytes Percent 6.6 % [address] Immature Granulocyte 0.4 % [address] Percent Eosinophils Percent 0.9 % [address] Basophil Percent 0.5 % [address] Nucleated RBC 0 /[address] Specimen Blood - Blood specimen (specimen) Performing Organization Address City/State/Zipcode Phone Number [address] [place] [address] PROTIME/INR (03/21/2020 6:34 PM BARRATTE OPERATOR) Pathologist Sig nature Protime 13.0 12.0 - 14.[address] INR 1.0 (L) 2.0 - 3.[address] Specimen Blood - Blood specimen (specimen) Narrative Performed At Normal INR reference range (patients not on oral antic oagulants) [address] 0.9-1.1. INR Standard Intensity = (2.0 - 3.0) INR Higher Intensity = (2.5 - 3.5) Performing Organization Address [facility] Phone Number [address] [place] [phone] BRAIN NATRIURETIC PEPTIDE (03/21/2020 6:34 PM BARRATTE OPERATOR) Pathologist Sig nature BNP 48 0 - 100 pg/mL [address] Specimen Blood - Blood specimen (specimen) Performing Organization Address [facility] Phone Number [address] [place] [phone] BASIC METABOLIC PANEL WITH GFR (03/21/2020 6:34 PM BARRATTE OPERATOR) Pathologist Sig [facility] Glucose 99 70 - 100 mg/dL [address] BUN 24 (H) 6 - 22 mg/dL [address] Creatinine 1.30 0.80 - 1.[address] mg/dL BUN/Creatinine Ratio 18.5 10.0 - 25.[address] Sodium 140 135 - 145 meq/L [address] Potassium 4.8 3.5 - 5.3 meq/L [address] Chloride 105 99 - 110 meq/L [address] CO2 28 20 - 29 meq/L [address] Anion Gap with K 12 6 - 20 meq/L [address] Calcium 9.2 8.5 - 10.5 mg/dL [address] Age [address] eGFR Non- 54 (L) >=[address] [place] mL/min/1.73m2 eGFR 65 >=[address] mL/min/1.73m2 Specimen Blood - Blood specimen (specimen) Performing Organization Address [facility] Phone Number [address] [place] [phone] TROPONIN I (03/21/2020 6:34 PM BARRATTE OPERATOR) Pathologist Sig nature Troponin I 19.388 (H) 0.000 - 0.028 ng/mL [address] Specimen Blood - Blood specimen (specimen) Performing Organization Address [facility] Phone Number [address] [facility] [address] PTT (03/21/2020 5:11 PM BARRATTE OPERATOR) Pathologist Sig nature APTT 64 (H) 24 - [address] Specimen Blood - Blood specimen (specimen) Performing Organization Address [facility] Phone Number [address] [facility] [address] documented in this encounter Visit Diagnoses Diagnosis NSTEMI (non-ST elevated myocardial infar ction) ([facility]) - Primary Acute myocardial infarction, subendocard ial infarction, episode of care unspecified Stented coronary artery Postsurgical percutaneous transluminal c oronary angioplasty status Essential hypertension Unspecified essential hypertension Recurrent major depressive disorder, in remission ([facility]) Anxiety state Anxiety state, unspecified Anemia Anemia, unspecified Enlarged prostate with urinary obstructi on Hypertrophy of prostate with urinary obs truction and other lower urinary tract symptoms (LUTS) Severe obstructive sleep apnea Obstructive sleep apnea (adult) (pediatr ic) documented in this encounter Discharge Diagnoses Not on filedocumented in this encounter Administered Medications Medication Order MAR Action Action Date Dose Rate Site acetaminophen (TYLENOL) tablet Given 03/23/2020 11:30 AM BARRATTE OPERATOR 650 mg 650 mg 650 mg, Oral, Every four hours prn, Starting 03/21/20 at 1657, Until Discontinued, mild pain, fever, pain scale 3 or less, Pain stratification is defined as follows for either analog scale (0-10) or critical care pain observation tool (CPOT, 0-8). a. No pain (0) b. Mild pain level (1-3) c. Moderate pain level (4-6) d. Severe pain level (greater than or equal to 7) Adult patients: Total dose of acetaminophen from all acetaminophen containing products should not exceed 4 grams (4,000 mg) per day. Pediatric Patients 0 - 3 months: Maximum of 60 mg/kg/24 hours of acetaminophen. Pediatric Patients older than 3 months: Maximum of 75 mg/kg/24 hours of acetaminophen (Never exceeding 4 grams/day)., Given 03/23/2020 3:43 AM BARRATTE OPERATOR 650 mg aspirin chewable tablet 81 mg Given 03/23/2020 9:25 AM BARRATTE OPERATOR 81 mg 81 mg, Oral, Daily, First dose on Mon03/23/20 at 0900, Until Discontinued, Post-Procedure (Cath) bisacodyl (DULCOLAX) suppository 10 mg 10 mg, Rectal, One time a day prn, Start ing 03/21/20 at 1830, Until Discontinued, constipation, Use SECOND for constipatio n. If patient cannot take oral medications, use first for constipation., buPROPion (WELLBUTRIN) tablet 75 mg Given 03/23/2020 9:25 AM BARRATTE OPERATOR 75 mg 75 mg, Oral, Two times a day, First dose on 03/21/20 at 2100, Until Discontinued Given 03/22/2020 9:43 PM BARRATTE OPERATOR 75 mg Given 03/22/2020 8:41 AM BARRATTE OPERATOR 75 mg carVEDilol (COREG) tablet 1.5625 mg 1.5625 mg, Oral, Two times a day with meals, First dos e on Mon03/23/20 at 0955, Until Discontinued, Take with food. Hold for SBP less than 90 Hold for HR less than 55, clopidogrel (PLAVIX) tablet 75 mg Given 03/23/2020 9:25 AM BARRATTE OPERATOR 75 mg 75 mg, Oral, Daily, 365 doses, First dose on Mon03/23/20 at 0900, Last dose on Mon03/22/21 at 0900, Post-Procedure (Cath) docusate sodium (THEREVAC-SB MINI;ENEMEE Z MINI) 283 MG enema 1 enema 1 enema, Rectal, One time a day prn, Starting Sat at 1830, Until Discontinued, constipation, Use THIRD for constipation - if no BM 8 hours after dulcolax suppository. If patient cannot take oral medi cations, use second for constipation., enoxaparin (LOVENOX) subcutaneous injection Given 03/23/2020 9:25 AM BARRATTE OPERATOR 40 mg solution 40 mg 40 mg, Subcutaneous, Daily, First dose on Mon03/22/20 at 0900, Until Discontinued, To avoid the loss of drug when using the 30 mg and 40 mg prefilled syringes, do not expel the air bubble from the syringe before the injection. For ADULT patients: Administration should be alternated between the left and right anterolateral and left and right posterolateral abdominal wall. The whole length of the needle should be introduced into a skin fold held between the thumb and forefinger; the skin fold should be held throughout the injection. To minimize bruising, do not rub the injection site after completion of the injection. For PEDIATRIC patients: Administration should be alternated between appropriate sites for patient age/weight (infants/small children = upper thigh; older children/adolescents = left and right anterolateral and left and right posterolateral abdominal wall). During administration to infants/smaller children sometimes the whole length of the needle is not "introduced" during the injection. Administer injection into a skin fold held between the thumb and forefinger; the skin fold should be held throughout the injection. To minimize bruising, do not rub the injection site after completion of the injection., Given 03/22/2020 8:41 AM BARRATTE OPERATOR 40 mg fentaNYL 100 mcg/2 mL preservative free Given 03/21/2020 9:07 P M BARRATTE OPERATOR 50 mcg injection solution 25-300 mcg 25-300 mcg, IV, PRN per parameter, Starting 03/21/20 at 3, Until Discontinued, other (Specify), sedation for cardiac catheterization, 6 mL, Pre-Procedure (Cath), procedural area to release, For sedation under direction provider privileged to perform sedation. Do not give on the floor., gabapentin (NEURONTIN) capsule 600 mg Given 03/22/2020 9:43 PM BARRATTE OPERATOR 600 mg 600 mg, Oral, Bedtime, First dose on 03/21/20 at 2100, Until Discontinued Given 03/21/2020 8:08 PM BARRATTE OPERATOR 600 mg hydrALAZINE (APRESOLINE) injection solut ion 10 mg 10 mg, IV, Every six hours prn, Starting 03/21/20 at 2133, Until Discontinued, specified parameter, to keep SBP less th an 150 mmHg, 0.5 mL, Repeat in 20 minutes if needed. If not successful after two d oses, contact the interventional cardiology team., losartan tablet 25 mg Given 03/23/2020 9:25 AM BARRATTE OPERATOR 25 mg 25 mg, Oral, Daily, First dose (after last modification) on Mon03/23/20 at 0900, Until Discontinued midazolam (VERSED) injection solution 0.5-10 Given 9:16 PM BARRATTE OPERATOR 1 mg mg 0.5-10 mg, IV, PRN per parameter, Starting 03/21/20 at 2033, Until Discontinued, other (Specify), sedation for cardiac catheterization, 10 mL, Pre-Procedure (Cath), procedural area to release, For sedation under direction provider privileged to perform sedation Do not give on the floor, Given 03/21/2020 9:07 PM BARRATTE OPERATOR 1 mg omeprazole (priLOSEC) capsule 20 mg Given 03/23/2020 6:00 AM BARRATTE OPERATOR 20 mg 20 mg, Oral, Two times a day before meals, First dose on 03/21/20 at 1835, Until Discontinued, Swallow cap whole. Do not crush, chew or open., Given 03/22/2020 6:07 PM BARRATTE OPERATOR 20 mg Given 03/22/2020 6:31 AM BARRATTE OPERATOR 20 mg ondansetron (ZOFRAN ODT) dispersible tab let 4 mg 4 mg, Oral, Four times a day prn, Starti ng Sat 03/21/20 at 1830, Until Discontinued, nausea, vomiting, Use FIRST for nausea / vomiting. If ineffective after 30 minutes use ondansetron IV, ondansetron (ZOFRAN) injection solution 4 mg 4 mg, IV, Every four hours prn, Starting 03/21/20 at 1657, Until Discontinued, nausea, vomiting, 2 mL, Use FIRST. If ineffective afte r 15 minutes use metoclopramide. If preference is to further dilute for IV administration: First draw up patient-specific dose, then dilute to 10 mL wi th 0.9% sodium chloride., ondansetron (ZOFRAN) injection solution 4 mg 4 mg, IV, Four times a day prn, Starting 03/21/20 at 1830, Until Discontinued, nausea, vomiting, 2 mL, Use SECOND for n ausea / vomiting. If ineffective after 30 minutes and ondansetron ODT used, call p hysician for alternative. If preference is to further dilute for IV administration: First draw up patient-specific dose, then dilute to 10 mL with 0.9% sodium chloride., senna-docusate sodium (SENOKOT-S;PERICOL RENÉE) tablet 2 tablet 2 tablet, Oral, Two times a day prn, Starting Sat at 1830, Until Discontinued, constipation, Use FIRST fo r constipation unless patient cannot take oral medications., sodium chloride 0.9% flush (adult) 10 mL Given 03/22/2020 8:42 AM BARRATTE OPERATOR 10 mL 10 mL, IV, Two times a day and prn, First dose on 03/21/20 at 2100, Until Discontinued, 10 mL, Flush IV line as scheduled and as often as necessary before and after meds., sodium chloride 0.9% flush (adult) 10 mL Given 03/23/2020 9:25 AM BARRATTE OPERATOR 10 mL 10 mL, IV, Two times a day and prn, First dose on 03/21/20 at 2100, Until Discontinued, 10 mL, Flush IV line as scheduled and as often as necessary before and after meds., Given 03/22/2020 8:42 AM BARRATTE OPERATOR 10 mL vortioxetine (TRINTELLIX) tablet 20 mg Given 03/23/2020 9:27 AM BARRATTE OPERATOR 20 mg 20 mg, Oral, DAILY, First dose on 03/22/20 at 0900, Until Discontinued Given 03/22/2020 8:41 AM BARRATTE OPERATOR 20 mg Medication Order MAR Action Action Date Dose Rate Site clopidogrel (PLAVIX) tablet Given 03/21/2020 9:33 PM BARRATTE OPERATOR 600 mg 75-600 mg 75-600 mg, Oral, Administer in Cardiac Methods Examiner, 1 dose, 03/21/20 at 2130, Under the direction of the provider in CCL. Do not give on the floor., hEParin (50 units/mL) in D5W New Bag 03/21/2020 5:38 PM 15 Un its/kg/hr 33.9 mL/hr premixed IV solution BARRATTE OPERATOR (STANDARD-weight based) 0-50 Units/kg/hr 112.9 kg (0-112.9 mL/hr), IV, at 0-112.9 mL/hr, Titrate, Starting 03/21/20 at 1800, Until 03/22/20 at 0640, 500 mL, Start initial infusion at 15 units/kg/hr. Notify physician if initial infusion exceeds 1,500 units/hr. Adjust heparin infusion based on sliding scale: * aPTT less than 60 sec ------ Give 70 units/kg IV bolus and add 4 units/kg/hr to current rate * aPTT 60-69.9 sec Give 35 units/kg IV bolus and add 2 units/kg/hr to current rate * aPTT 70-120.9 sec No change (therapeutic) * aPTT 121-135.9 sec Subtract 2 units/kg/hr from current rate * aPTT 136-149.9 sec --------- Hold heparin for 1 hour and subtract 3 units/kg/hr from current rate * aPTT 150 sec or greater - Redraw STAT aPTT and hold heparin. Draw hourly aPTT using routine specified time until less than 150 sec, then restart heparin infusion at 3 units/kg/hr less than the previous rate, give NO BOLUS and resume every 6 hour aPTT. AFTER PROCEDURE: When restarting infusion after it's been held for a procedure, restart infusion at "starting" dose of 15 units/kg/hr and follow titration orders. IF infusion was running at less than 15 units/kg/hr prior to procedure, restart at that rate and follow titration orders., heparin (porcine) injection solution Given 03/21/2020 9:[address] 1,000 Units 0-12,000 Units 0-12,000 Units, IV, Administer in Cardiac Methods Examiner, 1 dose, 03/21/20 at 2130, 12 mL, Under the direction of the provider in CCL. Do not give on the floor., hydroCHLOROthiazide tablet 12.5 mg Given 03/22/2020 8:41 AM BARRATTE OPERATOR 12.5 mg 12.5 mg, Oral, Daily, First dose on Mon03/22/20 at 0900, Until Discontinued iohexol (OMNIPAQUE) 350 mg/mL solution 125 Given 03/21/2020 9:35 PM BARRATTE OPERATOR 125 mL mL 125 mL, Intra-arterial, One time, 1 dose, 03/21/20 at 2235, 150 mL lidocaine PF (XYLOCAINE-MPF) 1 % preservative Given 9:09 PM BARRATTE OPERATOR 3 mL free injection solution 0-40 mL 0-40 mL, Subcutaneous, Administer in Cardiac Methods Examiner, 1 dose, 03/21/20 at 2035, 60 mL, Given by provider in CCL. Do not give on the floor., losartan tablet 100 mg Given 03/22/2020 8:40 AM BARRATTE OPERATOR 100 mg 100 mg, Oral, Daily, First dose on 03/22/20 at 0900, Until Discontinued metoprolol tartrate (LOPRESSOR) half-tablet Given 05/2020 9:43 PM BARRATTE OPERATOR 12.5 mg 12.5 mg 12.5 mg, Oral, Two times a day, First dose on 03/21/20 at 2100, Until Discontinued, Hold for SBP less than 100 Hold for HR less than 60, Given 03/21/2020 8:08 PM BARRATTE OPERATOR 12.5 mg morphine preservative free injection solution Given 12:19 AM BARRATTE OPERATOR 2 mg (conc: 2 mg/mL) 2 mg 2 mg, IV, Every five minutes prn, 3 doses, Starting 03/21/20 at 1823, Until 03/22/20 at 0019, other (Specify), chest pain, 1 mL, Administer morphine SECOND for chest pain (if nitroglycerin does not resolve pain or if SBP is less than 90 mmHg). Notify provider if administered, Given 03/21/2020 7:14 PM BARRATTE OPERATOR 2 mg Given 03/21/2020 6:56 PM BARRATTE OPERATOR 2 mg nitroglycerin (400 mcg/mL) Rate Change 03/21/2020 7:17 PM 35 mcg/min 5.3 mL/hr in D5W IV solution (premix) BARRATTE OPERATOR 5-100 mcg/min (0.75-15 mL/hr, rounded to 0.8-15 mL/hr), IV, at 0.8-15 mL/hr, Titrate, Starting 03/21/20 at 1800, Until 03/22/20 at 0640, 250 mL, For ADULT patients: Initiate infusion at 10 mcg/minute. For angina: Increase infusion by 5 mcg/minute every 5 minutes to 20 mcg/minute; if angina pain is not controlled at 20 mcg/minute, increase by 10 mcg/minute every 5 minutes until angina pain is controlled up to a max dose of 100 mcg/min. Notify physician if angina pain is not controlled with an infusion rate of 100 mcg/min. Do not increase the infusion rate if SBP less than 90 or MAP less than 60 mmHg. When discontinuing or weaning, decrease the infusion by 10 mcg/min every 15 minutes as tolerated to avoid hypertension and angina. Document titrations in One Chart (MAR or I&O Flowsheet medication group)., Rate Change 03/21/2020 7:07 PM BARRATTE OPERATOR 25 mcg/min 3.8 mL/hr Rate Change 03/21/2020 7:02 PM BARRATTE OPERATOR 20 mcg/min 3 mL/hr sodium chloride 0.9% IV solution New Bag 03/23/2020 12:01 AM BARRATTE OPERATOR 75 mL/hr IV, at 75 mL/hr, Continuous, Starting 03/21/20 at 2035, Until 03/23/20 at 0939, 1,000 mL, Prep Orders (Cath) if inpatient - floor RN to release, If this is a TILT procedure, start IV fluid at TKO (10 mL/hr) before transfer to the slab inspector, New Bag 03/22/2020 5:42 AM BARRATTE OPERATOR 75 mL/hr Rate Verify 03/22/2020 12:05 AM BARRATTE OPERATOR 75 mL/hr sodium chloride 0.9% IV solution Rate Change 03/22/2020 1:32 AM BARRATTE OPERATOR 150 mL/hr IV, at 150 mL/hr, Continuous, Starting 03/22/20 at 0045, Until 03/22/20 at 0244, 1,000 mL, Post-Procedure (Cath) verapamil-hEParin in normal saline (radial Given 03/21/2020 9:1 1 PM BARRATTE OPERATOR cocktail) Intra-arterial, Administer in Cardiac Methods Examiner, 1 dose, 03/21/20 at 2035, 10 mL, Under the direction of the provider in CCL. Do not give on the floor., documented in this encounter
== END 2020-03-21 15:45 | disposition other institution (70) ==
LOC: FB.ED 12:48
DX: I21.4 Non-ST elevation (NSTEMI) myocardial infarction (principal); I10 Essential (primary) hypertension; F41.9 Anxiety disorder, unspecified; F32.9 Major depressive disorder, single episode, unspecified; E66.9 Obesity, unspecified; G62.9 Polyneuropathy, unspecified; K21.9 Gastro-esophageal reflux disease without esophagitis; Z88.0 Allergy status to penicillin; Z88.8 Allergy status to other drugs, medicaments and biological substances; Z79.899 Other long term (current) drug therapy; Z68.35 Body mass index [BMI] 35.0-35.9, adult
CPT/HCPCS: 36415; 71046; 80053; 83735; 83880; 84484; 85025; 93005; 96365; 96368; 96375; 99285; A9270; J1644; J2270; J3490

== ENCOUNTER 2021-09-24 14:14 | Emergency (ER) | payer BC, MEDICARE ==
[2021-09-24] MEDS ORDERED: Sodium Chloride 0.9% 10 ML Syringe FLUSH PRN (14:24)
[2021-09-24] MEDS ORDERED: Hyoscyamine 0.125 MG Tab.SL SL ONE (14:37)
[2021-09-24] MEDS ORDERED: Acetaminophen 500 MG Tab PO ONE (14:38)
[2021-09-24] MEDS ORDERED: Lactated Ringers 1,000 ML IV ONE (14:38)
[2021-09-24 17:11] VITALS: BP 134/65; PULSE 58
== END 2021-09-24 16:36 | disposition home or self-care (01) ==
LOC: FB.ED 14:14
DX: K58.0 Irritable bowel syndrome with diarrhea (principal); E86.0 Dehydration; F41.9 Anxiety disorder, unspecified; F32.A Depression, unspecified; K21.9 Gastro-esophageal reflux disease without esophagitis; Z79.899 Other long term (current) drug therapy; Z88.0 Allergy status to penicillin; Z88.8 Allergy status to other drugs, medicaments and biological substances
CPT/HCPCS: 36415; 86140; 96360; 99284; A9270; J7120